=== PATIENT | female | born 1955 | race Caucasian/White ===

== ENCOUNTER 2020-01-10 09:10 | Outpatient (CLI) | payer BC, SELFPAY ==
--- NOTE | ~2020-01-10 | MM_ITS ---
EXAMINATION: MM screening tyrel BI w mary HISTORY: Screening mammogram TECHNIQUE: Craniocaudal and mediolateral oblique 3-D tomosynthesis images were obtained and synthetic 2-D images were generated. CAD analysis was submitted and interpreted. COMPARISON: 01/05/2019 bilateral digital screening mammogram 06/02/2018, 05/19/2018 diagnostic right digital mammogram 12/15/2017 outside bilateral breast ultrasound images: multiple bilateral simple cysts were reported 12/08/2017 outside mammogram images BREAST PARENCHYMAL COMPOSITION: The breasts are heterogeneously dense, which may obscure small masses . FINDINGS: There are 3 biopsy markers on the right. History of prior benign right breast biopsy. Bilateral circumscribed opacities, the largest approximately 1.7 cm on the right. There is diminished size of left breast circumscribed opacities since 01/05/2019. The findings are consistent with bilater al fibrocystic changes. No suspicious mass, architectural distortion or malignant calcification of ei ther breast is evident. There is no evidence of suspicious mass, calcification, or architectural dist ortion to suggest malignancy in either breast. There has been no suspicious interval change. IMPRESSION: 1. No mammographic evidence of malignancy. 2. Recommend routine screening mammography in one year. BI-RADS Category 2: Benign finding(s). Reviewed, dictated and finalized at location A. DRIVER
== END 2020-01-10 09:11 | disposition home or self-care (01) ==
LOC: ANHIMG 09:15
PROVIDERS: PCP Internal Medicine; Visit Provider Student in an Organized Health Care Education/Training Program
DX: Z12.31 Encounter for screening mammogram for malignant neoplasm of breast (principal)
CPT/HCPCS: 77063; 77067

== ENCOUNTER 2021-02-06 15:34 | Outpatient (CLI) | payer MEDICARE, BC, SELFPAY | END 2021-02-06 15:35 | disposition home or self-care (01) | LOC: ANHCOVIDVC 15:34 | PROVIDERS: PCP Internal Medicine | DX: Z23 Encounter for immunization (principal) | CPT/HCPCS: 0001A; 91300 ==

== ENCOUNTER 2021-02-07 09:01 | Outpatient (CLI) | payer MEDICARE, BC, SELFPAY ==
--- NOTE | ~2021-02-07 | MM_ITS ---
EXAMINATION: MM screening tyrel BI w mary HISTORY: Screening mammogram TECHNIQUE: Craniocaudal and mediolateral oblique 3-D tomosynthesis images were obtained and synthetic 2-D images were generated. CAD analysis was submitted and interpreted. COMPARISON: January 10, 2020, October 05, 2019 bilateral digital screening mammogram examinations BREAST PARENCHYMAL COMPOSITION: The breasts are heterogeneously dense, which may obscure small masses . FINDINGS: Again noted are 3 right biopsy markers, with history of benign diagnosis There are scattered bilateral low-density circumscribed subcentimeter masses, likely bilateral breast cysts. There is asymmetric density in the posterior lower inner medial left breast; diagnostic left mammogra m and left breast ultrasound examination are recommended. Otherwise there is no evidence of suspicious mass, calcification, or architectural distortion to sugg est malignancy in either breast. There has been no other suspicious interval change. IMPRESSION: 1. Asymmetry, left breast 2. Diagnostic left mammogram and left breast ultrasound examination are recommended. BI-RADS Category 0: Incomplete: Needs additional imaging evaluation. Reviewed, dictated and finalized at location A. ERCIAL CREDIT HEAD IMPRESSION: 1. Asymmetry, left breast 2. Diagnostic left mammogram and left breast ultrasound examination are recomme nded. BI-RADS Category 0: Incomplete: Needs additional imaging evaluation.
== END 2021-02-07 09:02 | disposition home or self-care (01) ==
LOC: ANHIMG 09:06
PROVIDERS: PCP Internal Medicine; Visit Provider Student in an Organized Health Care Education/Training Program
DX: Z12.31 Encounter for screening mammogram for malignant neoplasm of breast (principal); R92.8 Other abnormal and inconclusive findings on diagnostic imaging of breast
CPT/HCPCS: 77063; 77067

== ENCOUNTER 2021-02-27 15:06 | Outpatient (CLI) | payer BC, SELFPAY | END 2021-02-27 15:07 | disposition home or self-care (01) | LOC: ANHCOVIDVC 15:06 | PROVIDERS: PCP Internal Medicine | DX: Z23 Encounter for immunization (principal) | CPT/HCPCS: 0002A; 91300 ==

== ENCOUNTER 2021-04-26 11:38 | Outpatient (CLI) | payer MEDICARE, BC, SELFPAY ==
--- NOTE | ~2021-04-26 | MMUS_ITS ---
EXAMINATION: MM diagnostic mammo unilat LT, US breast LT limited HISTORY: Left breast asymmetry on screening mammogram TECHNIQUE: Additional 3-D tomosynthesis images of the left breast were performed and synthetic 2-D im ages were generated. CAD analysis was submitted and interpreted. High resolution limited left breast ultrasound was performed. COMPARISON: 02/07/2021, 01/10/2020, 01/05/2019, 12/08/2017 BREAST PARENCHYMAL COMPOSITION: The breasts are heterogeneously dense, which may obscure small masses . FINDINGS: MAMMOGRAPHIC FINDINGS: There are multiple obscured masses of the left breast. With spot compression, many demonstrate waxing and waning appearance when compared to prior mammograms. No definite suspicious mass is identified. There is no architectural distortion or suspicious calcification. ULTRASOUND: There are multiple cysts of the lower inner breast, the largest of which measures 6 mm x 4 mm. No carol picious cystic or solid mass is identified. IMPRESSION: 1. No mammographic or sonographic evidence of malignancy. 2. Recommend routine screening mammography in one year. BI-RADS Category 2: Benign finding(s). Reviewed, dictated and finalized at location A. IMPRESSION: 1. No mammographic or sonographic evidence of malignancy. 2. Recommend routine screening mammography in one year. BI-RADS Category 2: Benign finding(s).
== END 2021-04-26 11:39 | disposition home or self-care (01) ==
PROVIDERS: PCP Internal Medicine; Visit Provider Student in an Organized Health Care Education/Training Program
DX: R92.8 Other abnormal and inconclusive findings on diagnostic imaging of breast (principal)
CPT/HCPCS: 76642; 77065

== ENCOUNTER 2021-10-29 08:06 | Outpatient (CLI) | payer MEDICARE, SELFPAY ==
--- NOTE | 2021-10-29 | ECG_ITS ---
Measurements Intervals [place] Rate: 70 P: 42 CA: 166 QRS: 9 QRSD: 82 T: 60 QT: 391 QTc: 425 Interpretive Statements SINUS RHYTHM MINIMAL Q WAVES- INFERIOR LEADS BORDERLINE ECG Electronically Signed On 10-29-2021 8:46:44 PRODUCTION SUPERVISOR OFF SHIFT by Gerald Galeano D.O.
[2021-10-29 08:48] LABS: Anion Gap 8 mmol/L (8-16); Blood Urea Nitrogen 31 mg/dL (7-17); Calcium 8.8 mg/dL (8.4-10.2); Carbon Dioxide 30 mmol/L (22-30); Chloride 99 mmol/L (98-107); Estimated Glomerular Filt Rate > 60; Glucose 103 mg/dL (65-110); Potassium 3.6 mmol/L (3.4-5.0); Sodium 137 mmol/L (137-145)
== END 2021-10-29 08:07 | disposition home or self-care (01) ==
PROVIDERS: PCP Internal Medicine; Visit Provider Orthopaedic Surgery
DX: Z01.818 Encounter for other preprocedural examination (principal); R94.31 Abnormal electrocardiogram [ECG] [EKG]
CPT/HCPCS: 36415; 80048; 93005

== ENCOUNTER 2022-03-15 01:02 | Day surgery (SDC) | payer MEDICARE, SELFPAY ==
[2022-03-06 08:55] VITALS: BMI 27.3
[2022-03-15 06:20] VITALS: BMI 26.9
[2022-03-15 06:27] VITALS: BP 113/74; PULSE 91; RESP 18; TEMP 36.1; O2SAT 98
[2022-03-15] MEDS: LACTATED RINGERS 1,000 ML 150 ML IV CONT (06:29)
--- NOTE | 2022-03-15 06:59 | WPDANESEPPF ---
Anes - Initial Pre Proc Eval Procedure: Operation Date: 03/15/22 07:30 Proposed Procedures p Screening Colonoscopy - Arnulfo Galeana MD Date/Time: 03/15/22 06:59 Surgeon: Arnulfo Galeana MD Pre Op Diagnosis: neoplasm screening Patient Data Age: 66 Gender: F Height: 1.52 m Weight: 62.6 kg Last Vital Signs Temp 36.1 C L 03/15/22 06:27 Pulse 91 03/15/22 06:27 Resp 18 03/15/22 06:27 BP 113/74 03/15/22 06:27 Pulse Ox 98 03/15/22 06:27 Allergies Allergy/AdvReac Type Severity Reaction Status Date / Time acetaminophen AdvReac Mild VOMITING Verified 03/06/22 09:15 hydrocodone AdvReac Mild NAUSEA Verified 03/06/22 09:15 propoxyphene AdvReac Mild VOMITING Verified 03/06/22 09:15 PROCAINE HCL (Generic Allergy Severe Loss of Uncoded 03/06/22 09:15 Allergy) Consciousness NKFA Allergy Unknown Unknown Uncoded 03/06/22 09:15 1 DARVON 2 NOVICAINE AdvReac Mild Nausea Uncoded 03/06/22 09:15 Home Medications Medication Instructions Recorded Confirmed Type valacyclovir 1 gram tablet 1,000 mg PO DAILY #90 tablet 02/14/20 03/06/22 Rx alprazolam 0.5 mg tablet 0.5 mg PO DAILY 03/22/20 03/06/22 History atorvastatin 10 mg tablet 10 mg PO DAILY 03/22/20 03/06/22 History tramadol 50 mg tablet 50 mg PO Q6H PRN 03/22/20 03/06/22 History pregabalin 150 mg capsule 150 mg PO TID 09/20/20 03/06/22 History estradiol 1 mg tablet 1 mg PO DAILY #90 tablet 09/28/21 03/06/22 Rx lisinopril 20 1 tablet PO DAILY 09/28/21 03/06/22 History mg-hydrochlorothiazide 25 mg tablet Patient hx anesthesia problems: none Family hx anesthesia problems: none Results Review: All pre-operative results and documents have been reviewed as part of the pre-operative evaluation. [facility] Past Medical History Medical History Anxiety Autoimmune disease High cholesterol History of vaginal delivery Hyperlipidemia Hypertension Irritable bowel Surgical History Surgical History History of breast biopsy History of total hysterectomy Hx of hemorrhoidectomy 09/07/2021 Excision Thrombosed External Hemorrhoid Family History Family History Mother Patient's mother is Hypertension Father Patient's father is Grandparent Family history of malignant neoplasm Daughter No problems noted. Social History Social History Smoking status: Never smoker Second hand tobacco smoke exposure: No Alcohol intake: never Substance use: current Substance use type: marijuana Other substance usage details: occasional use for pain Living arrangements: with family Additional living arrangements comments: Lives with Additional occupation/education comments: Disabled Gender identity (if verbalized by the patient): Female Spiritual care concerns: No Agree to blood products: Yes Anes - Eval Final PreProcedure Day of Procedure 03/15/22 06:59 Patient weight: overweight Heart: regular rate and rhythm Lungs: clear to auscultation Airway: Mallampati scale class II and special considerations poor opening Neurological: alert and oriented Last oral intake: >/= 8 hours ASA classification: III Emergent: no Anesthetic plan: proceed Anesthesia type and monitoring: general GIVS and standard monitoring Results Review: All pre-operative results and documents have been reviewed as part of the pre-operative evaluation. Informed Consent: The patient's anesthetic plan and its attendant risks and benefits were discussed with the patient/family/POA. Questions were solicited and answers provided to the satisfaction of the patient/family/POA.
--- NOTE | 2022-03-15 07:03 | PM.HPGS ---
History of Present Illness History of Present Illness Consent: Risks, benefits, and alternatives have been discussed and questions answered. Patient agrees to proceed with procedure. Chief complaint: neoplasm screening Narrative: Rosalind Brown is a 66 year old female Referred for colon cancer screening. Her last colonoscopy was 10 years ago Review of Systems Review of Systems: All systems reviewed & are unremarkable except as noted in HPI and below PMFSH Past Medical History Medical History Anxiety Autoimmune disease High cholesterol History of vaginal delivery Hyperlipidemia Hypertension Irritable bowel Surgical History Surgical History History of breast biopsy History of total hysterectomy Hx of hemorrhoidectomy 09/07/2021 Excision Thrombosed External Hemorrhoid Family History Family History Mother Patient's mother is Hypertension Father Patient's father is Grandparent Family history of malignant neoplasm Daughter No problems noted. Social History Social History Smoking status: Never smoker Second hand tobacco smoke exposure: No Alcohol intake: never Substance use: current Substance use type: marijuana Other substance usage details: occasional use for pain Living arrangements: with family Additional living arrangements comments: Lives with Additional occupation/education comments: Disabled Gender identity (if verbalized by the patient): Female Spiritual care concerns: No Agree to blood products: Yes Meds Home Medications and Allergies Home Medications Medication Instructions Recorded Confirmed Type valacyclovir 1 gram tablet 1,000 mg PO DAILY #90 tablet 02/14/20 03/06/22 Rx alprazolam 0.5 mg tablet 0.5 mg PO DAILY 03/22/20 03/06/22 History atorvastatin 10 mg tablet 10 mg PO DAILY 03/22/20 03/06/22 History tramadol 50 mg tablet 50 mg PO Q6H PRN 03/22/20 03/06/22 History pregabalin 150 mg capsule 150 mg PO TID 09/20/20 03/06/22 History estradiol 1 mg tablet 1 mg PO DAILY #90 tablet 09/28/21 03/06/22 Rx lisinopril 20 1 tablet PO DAILY 09/28/21 03/06/22 History mg-hydrochlorothiazide 25 mg tablet Allergies Allergy/AdvReac Type Severity Reaction Status Date / Time acetaminophen AdvReac Mild VOMITING Verified 03/06/22 09:15 hydrocodone AdvReac Mild NAUSEA Verified 03/06/22 09:15 propoxyphene AdvReac Mild VOMITING Verified 03/06/22 09:15 PROCAINE HCL (Generic Allergy Severe Loss of Uncoded 03/06/22 09:15 Allergy) Consciousness NKFA Allergy Unknown Unknown Uncoded 03/06/22 09:15 1 DARVON 2 NOVICAINE AdvReac Mild Nausea Uncoded 03/06/22 09:15 Vital Signs Vital Signs - 24 hr 03/15/22 06:27 Temperature 36.1 C L Pulse Rate 91 Respiratory Rate 18 Blood Pressure 113/74 Pulse Oximetry 98 Exam Resp: Auscultation: clear to auscultation bilaterally Cardio: Rate: regular rate Rhythm: regular rhythm GI: GI Palp: Yes Soft to palpation and No Tenderness to palpation present (GI) Assessment and Plan Assessment and plan (1) Colon cancer screening: Code(s): Z12.11 - Encounter for screening for malignant neoplasm of colon Status: Acute Assessment and Plan: Colonoscopy with possible biopsy or polypectomy or cautery or injection of substances.
[2022-03-15 07:40] VITALS: BP 87/59; PULSE 74; RESP 19; O2SAT 99
[2022-03-15 07:50] VITALS: BP 119/71; PULSE 70; RESP 17; O2SAT 100
[2022-03-15 08:00] VITALS: BP 116/70; PULSE 70; RESP 19; O2SAT 100
== END 2022-03-15 08:09 | disposition home or self-care (01) ==
PROVIDERS: PCP Internal Medicine; Visit Provider Internal Medicine Gastroenterology
PROC: 0DJD8ZZ Inspection of Lower Intestinal Tract, Via Natural or Artificial Opening Endoscopic (ICD-10-PCS; CPT 45378; principal; 2022-03-15 07:30)
DX: Z12.11 Encounter for screening for malignant neoplasm of colon (principal); K64.8 Other hemorrhoids; K57.30 Diverticulosis of large intestine without perforation or abscess without bleeding; D12.8 Benign neoplasm of rectum; K63.5 Polyp of colon; I10 Essential (primary) hypertension; E78.5 Hyperlipidemia, unspecified; F41.9 Anxiety disorder, unspecified; M35.9 Systemic involvement of connective tissue, unspecified; K58.9 Irritable bowel syndrome, unspecified; F12.90 Cannabis use, unspecified, uncomplicated
CPT/HCPCS: 45380; 45385; 88305; J2001; J2704; J7120

== ENCOUNTER 2022-07-12 08:30 | Outpatient (CLI) | payer MEDICARE, SELFPAY ==
--- NOTE | ~2022-07-12 | MM_ITS ---
EXAMINATION: MM screening tyrel BI w mary HISTORY: Screening mammogram TECHNIQUE: Craniocaudal and mediolateral oblique 3-D tomosynthesis images were obtained and synthetic 2-D images were generated. CAD analysis was submitted and interpreted. COMPARISON: 04/26/2021, 02/07/2021, 01/10/2020 BREAST PARENCHYMAL COMPOSITION: There are scattered areas of fibroglandular density. FINDINGS: Again seen are multiple bilateral obscured breast masses, none of which demonstrate suspici ous interval change. There is no suspicious mass, calcification, or architectural distortion to sugge st malignancy in either breast. IMPRESSION: 1. No mammographic evidence of malignancy. 2. Recommend routine screening mammography in one year. BI-RADS Category 2: Benign finding(s). Reviewed, dictated and finalized at location A.
== END 2022-07-12 08:31 | disposition home or self-care (01) ==
PROVIDERS: PCP Internal Medicine; Visit Provider Student in an Organized Health Care Education/Training Program
DX: Z12.31 Encounter for screening mammogram for malignant neoplasm of breast (principal)
CPT/HCPCS: 77063; 77067

== ENCOUNTER → 2022-08-19 10:00 | Outpatient (CLI) | payer MEDICARE, SELFPAY ==
--- NOTE | ~2022-08-19 | CT_ITS ---
EXAMINATION: CT sinus wo con DATE: 08/19/2022 10:21 INDICATION: Chronic sinusitis TECHNIQUE: Computed tomography (CT) of the paranasal sinuses was performed without contrast. Iterativ e reconstruction technique was employed. Exam dose: 251.70 mGy-cm total exam DLP. COMPARISON: None FINDINGS: There is leftward deviation of the nasal septum. Unable subtle turbinates are unremarkable. There is mild mucosal periosteal thickening in the region of the maxillary ostia bilaterally. There i s mild soft tissue thickening of the right infundibulum. There is slight mucoperiosteal thickening of the medial wall of the right frontal sinus and anterior wall of left sphenoid sinus. There is mild patchy soft tissue thickening of the ethmoid air cells. Mild mucoperiosteal thickening primarily in the lower aspect of the maxillary sinuses. The mastoid air cells are normally developed and aerated bilaterally. IMPRESSION: Mild soft tissue thickening at the maxillary ostia and right infundibulum Mild patchy soft tissue thickening the ethmoid air cells, mild soft tissue thickening along the media l wall of the right frontal sinus, minimal soft tissue thickening of anterior left sphenoid sinus wal l Mild mucoperiosteal thickening of the lower aspect of both maxillary sinuses Reviewed, dictated and finalized at Location A. Reviewed, dictated and finalized at location B. IMPRESSION: Mild soft tissue thickening at the maxillary ostia and right infun dibulum Mild patchy soft tissue thickening the ethmoid air cells, mild soft tissue thic kening along the medial wall of the right frontal sinus, minimal soft tissue th ickening of anterior left sphenoid sinus wall Mild mucoperiosteal thickening of the lower aspect of both maxillary sinuses
== END ==
PROVIDERS: PCP Internal Medicine; Visit Provider Otolaryngology
DX: J32.9 Chronic sinusitis, unspecified (principal)
CPT/HCPCS: 70486

== ENCOUNTER 2022-10-23 08:43 | Emergency (ER) | payer MEDICARE, SELFPAY ==
--- NOTE | ~2022-10-23 | CT_ITS ---
EXAMINATION: CT abdomen pelvis w con DATE: 10/23/2022 10:03 INDICATION: Epigastric pain and nausea TECHNIQUE: Computed tomography (CT) of the abdomen and pelvis was performed with 100 cc Omnipaque 350 intravenous contrast. The dose-length product was 337.94 mGy-cm. Automated exposure control and iter ative reconstruction technique were employed. COMPARISON: CT dated 11/16/2016. FINDINGS: Heart size is normal. There is atherosclerosis of the aorta without aneurysm. No significan t pleural or pericardial effusion. There is lower lobe atelectasis. Fatty infiltration of the liver. Gallbladder is present. The spleen, pancreas, adrenal glands are unr emarkable. There are small subcentimeter hypodensities of the kidneys, most likely benign. There is a n exophytic 1.7 cm cyst from the upper pole of the right kidney. Nonobstructive bowel gas pattern. No rmal appendix. Uterus is surgically absent. No abnormal pelvic masses or fluid collections. The bladd er is decompressed. Small fat-containing umbilical hernia. Mild lumbar spondylosis. IMPRESSION: 1. No acute abdominal abnormality. 2: Hepatic steatosis. Reviewed, dictated and finalized at location A. TER TECHNICIAN
[2022-10-23 08:54] VITALS: BP 153/98; PULSE 89; RESP 16; TEMP 36.7; O2SAT 98
[2022-10-23 09:07] LABS: Basophils Absolute Auto 0.1 K/mm3 (0.0-0.1); Basophils Percent Auto 0.6 % (0.2-1.2); Eosinophils Absolute Auto 0.1 K/mm3 (0-0.3); Eosinophils Percent Auto 0.5 % (0-4.4); Hematocrit 44.4 % (37.0-47.0); Hemoglobin 15.2 g/dL (12.0-15.0); Immature Granulocyte Absolute 0.04 K/mm3 (0.00-0.031); Immature Granulocyte Percent A 0.3 % (0-0.5); Lymphocytes Absolute Auto 2.11 K/mm3 (0.9-3.2); Lymphocytes Percent Auto 17.4 % (18.3-44.2); Mean Corpuscular HGB Conc 34.2 g/dl (32-36); Mean Corpuscular Hemoglobin 32.9 pg (26-34); Mean Corpuscular Volume 96.1 fl (80-100); Mean Platelet Volume 9.4 fl (7.4-10.4); Monocytes Absolute Auto 0.5 K/mm3 (0.1-0.6); Monocytes Percent Auto 4.3 % (2.6-8.5); Neutrophils Absolute Auto 9.3 K/mm3 (1.3-6.7); Neutrophils Percent Auto 76.9 % (45.5-73.1); Platelet Count Result 541 k/mm3 (150-375); Red Blood Count 4.62 M/mm3 (4.2-5.4); Red Cell Distribution Width 14.3 % (11.5-14.5); White Blood Count 12.1 K/mm3 (4.5-10.0)
--- NOTE | 2022-10-23 09:23 | ED.NAVMDI ---
HPI - Nausea/Vomiting/Diarrhea General Chief complaint: Nausea/Vomiting/Diarrhea Stated complaint: sick x 1 week Time Seen by Provider: 10/23/22 09:09 Source: patient Mode of arrival: ambulatory Limitations: no limitations History of Present Illness HPI Narrative: This is a 67 year old female that presents to the ER for nausea, ongoing for one week. Associated with a headache and congestion. She has Zofran prescribed for her anxiety and has taken that with little relief. Denies fever, cough, vomiting, diarrhea, dysuria. Related Data Home Medications Medication Instructions Recorded Confirmed alprazolam 0.5 mg tablet (Xanax) 0.5 mg PO DAILY 03/22/20 03/06/22 atorvastatin 10 mg tablet 10 mg PO DAILY 03/22/20 03/06/22 tramadol 50 mg tablet 50 mg PO Q6H PRN Pain 03/22/20 03/06/22 lisinopril 20 1 tablet PO DAILY 09/28/21 03/06/22 mg-hydrochlorothiazide 25 mg tablet meloxicam 7.5 mg tablet 7.5 mg PO DAILY 10/09/22 mirtazapine 30 mg tablet 30 mg PO DAILY 10/09/22 meloxicam 7.5 mg tablet 7.5 mg PO DAILY 10/23/22 Allergies Allergy/AdvReac Type Severity Reaction Status Date / Time hydrocodone AdvReac Mild NAUSEA Verified 10/23/22 08:57 procaine AdvReac Mild Vomiting Verified 10/23/22 09:24 propoxyphene AdvReac Mild VOMITING Verified 10/23/22 08:57 NKFA Allergy Unknown Unknown Uncoded 10/23/22 08:57 Review of Systems Review of Systems: CONSTITUTIONAL: Denies fever ENT: Reports congestion CARDIOVASCULAR: Denies chest pain RESPIRATORY: Denies cough or dyspnea. GASTROINTESTINAL: Reports abdominal pain, nausea. Denies vomiting, or diarrhea. GENITOURINARY: Denies dysuria NEUROLOGIC: Reports headache. Denies numbness, or weakness. PSYCHIATRIC: Reports anxiety All systems reviewed & are unremarkable except as noted in HPI and below PMFSH Past Medical History Medical History (Updated 10/23/22 @ 11:14 by Kindra Basilio PA-C) Anxiety Autoimmune disease High cholesterol History of kidney stones History of vaginal delivery Hyperlipidemia Hypertension Irritable bowel Surgical History Surgical History (Updated 10/09/22 @ 08:30 by Tonja Luong MA) H/O lateral meniscus repair of right knee History of breast biopsy History of total hysterectomy Hx of hemorrhoidectomy 09/07/2021 Excision Thrombosed External Hemorrhoid Family History Family History Mother Patient's mother is Hypertension Father Patient's father is Grandparent Family history of malignant neoplasm Daughter No problems noted. Social History Social History Smoking status: Never smoker Second hand tobacco smoke exposure: No Alcohol intake: never Substance use: current Substance use type: marijuana Other substance usage details: occasional use for pain Additional living arrangements comments: Lives with Additional occupation/education comments: Disabled Gender identity (if verbalized by the patient): Female Spiritual care concerns: No Agree to blood products: Yes Exam Narrative: GENERAL: Well-appearing, well-nourished, and in no acute distress. HEAD: Normocephalic, atraumatic. EYES: EOMI. ENT: Nares clear, no rhinorrhea or epistaxis. Mucous membranes moist. Oropharynx without tonsillar hypertrophy exudate or other lesions. NECK: Supple. No adenopathy or masses. CHEST: Clear to auscultation. No respiratory distress. No wheezes rales or rhonchi HEART: Regular rate and rhythm. No murmur heard. Normal peripheral pulses. ABDOMEN: Soft, nondistended, normal active bowel sounds. Mild tenderness to palpation throughout the epigastrium, without guarding EXTREMITIES: Normal range of motion. No edema. SKIN: Warm, dry, no rash. NEURO: No focal deficits. Alert and oriented x3. PSYCH: Normal mood and affect Course Vital Signs Vital signs: Vital Signs Te
[2022-10-23 09:42] LABS: Alanine Aminotransferase 10 U/L (6-35); Albumin Level 4.3 g/dL (3.5-5.1); Alkaline Phosphatase 86 U/L (38-126); Anion Gap 8 mmol/L (8-16); Aspartate Amino Transferase 27 U/L (14-36); Bilirubin,Total 0.5 mg/dL (0.2-1.3); Blood Urea Nitrogen 30 mg/dL (7-17); Calcium 9.2 mg/dL (8.4-10.2); Carbon Dioxide 23 mmol/L (22-30); Chloride 105 mmol/L (98-107); Estimated CRCL calculation 43 ml/min; Estimated Glomerular Filt Rate > 60; Glucose 107 mg/dL (65-110); Lipase 97 U/L (23-300); Potassium 3.7 mmol/L (3.4-5.0); Sodium 136 mmol/L (137-145)
[2022-10-23] MEDS: diphenhydrAMINE HCl INJ 50 MG/ML VIAL 25 MG IV PUSH (09:48)
[2022-10-23] MEDS: SODIUM CHLORIDE 0.9% IV 1,000 ML 999 ML IV CONT (09:48)
[2022-10-23] MEDS: METOCLOPRAMIDE HCL INJ 10 MG/2 ML VIAL IV PUSH (09:49)
[2022-10-23] MEDS: PANTOPRAZOLE SODIUM IV 40 MG VIAL IV PUSH (09:49)
[2022-10-23 09:54] LABS: Appearance Urine Clear (Clear); Bilirubin Urine Negative (Negative); Blood Urine Negative (Negative); Color Urine Yellow (Yellow); Glucose Urine UA Negative (Negative); Ketones Urine 1+ mg/dL (Negative); Leukocyte Esterase Ur Negative LEU/UL (Negative); Nitrate Urine Negative (Negative); Protein Urine 1+ mg/dL (Negative); Specific Grav Ur 1.015 (1.001-1.035); Urobilinogen Urine 0.2 mg/dL (<2.0)
[2022-10-23 10:05] LABS: Mucus Urine Rare /lpf; Squamous Epithelial Cell Urine Moderate /hpf (Few); WBC Urine 0-3 /hpf
[2022-10-23 10:06] LABS: Influenza A QL RT-PCR Negative (Negative); Influenza B QL RT-PCR Negative (Negative); RSV RNA, RT-PCR Negative (Negative); SARS-CoV-2 RNA PCR Negative
[2022-10-23 10:18] LABS: Add Urine Microscopic? YES
== END 2022-10-23 11:20 | disposition home or self-care (01) ==
PROVIDERS: Physician Assistant; Emergency Provider Emergency Medicine; PCP Internal Medicine
DX: R11.0 Nausea (principal); Z20.822 Contact with and (suspected) exposure to COVID-19; K76.0 Fatty (change of) liver, not elsewhere classified
CPT/HCPCS: 36415; 74177; 80053; 81001; 83690; 85025; 87637; 99284; C9113; J0131; J1200; J2765; J7030; Q9967

== ENCOUNTER 2022-10-24 06:10 | Observation (INO) | payer MEDICARE, SELFPAY ==
[2022-10-24] VITALS (15 sets, daily range): BP systolic 115–151; BP diastolic 52–90; PULSE 66–102; RESP 14–20; TEMP 36.3–37; O2SAT 97–100
--- NOTE | ~2022-10-24 | XR_ITS ---
XR abdomen/kub 1V DATE: 10/24/2022 11:09 INDICATION: Stomach cramping. Uncontrolled nausea. TECHNIQUE: 2 supine AP views COMPARISON: 10/23/2022 CT abdomen pelvis FINDINGS: There is no evidence of bowel obstruction. The psoas shadows are intact. No visceromegaly i s evident. Bilateral calcified pelvic phleboliths. IMPRESSION: Nonspecific abdomen; no evidence of bowel obstruction Reviewed, dictated and finalized at [facility]. Reviewed, dictated and finalized at location [facility]. ICE CAPTAIN
--- NOTE | ~2022-10-24 | XR_ITS ---
XR abdomen/kub 1V DATE: 10/26/2022 09:53 INDICATION: Impaction. Abdominal pain, nausea TECHNIQUE: AP view COMPARISON: 10/20/2022 KUB 10/23/2022 CT abdomen pelvis FINDINGS: No evidence of bowel obstruction. The psoas shadows are intact. No visceromegaly is detecte d. Bilateral calcified pelvic phleboliths. IMPRESSION: No significant abnormality Reviewed, dictated and finalized at [facility]. Reviewed, dictated and finalized at [facility]. ION CONSULTANT SALES IMPRESSION: No significant abnormality
--- NOTE | 2022-10-24 06:24 | ED.GENADULT ---
HPI - General Adult General Chief complaint: Abdominal Pain <Juan Francisco Krishna DO - Last Filed: 10/24/22 19:09> Stated complaint: chills, abd pain, n/v <Juan Francisco Krishna DO - Last Filed: 10/24/22 19:09> Time Seen by Provider: 10/24/22 06:24 <Juan Francisco Krishna DO - Last Filed: 10/24/22 19:09> Source: RN notes reviewed <Juan Francisco Krishna DO - Last Filed: 10/24/22 19:09> History of Present Illness HPI narrative: Patient presents emergency department from home for abdominal pain and nausea. Patient states symptoms been ongoing for the past 1 week. States that she has been having worsening nausea and states that she had thrown up earlier this morning she states that with that is associated with abdominal pain is diffuse throughout the abdomen. Pain is described as cramping in nature. She denies any fevers or chills chest pain shortness of breath or any other symptoms. Patient states that she was seen in the emergency department yesterday for the same symptoms and was discharged home with nausea medication which she took with minimal relief <Juan Francisco Krishna DO - Last Filed: 10/24/22 19:09> Related Data Home medications: Home Medications Medication Instructions Recorded Confirmed alprazolam 0.5 mg tablet (Xanax) 0.5 mg PO DAILY 03/22/20 10/24/22 atorvastatin 10 mg tablet 10 mg PO DAILY 03/22/20 10/24/22 tramadol 50 mg tablet 50 mg PO Q6H PRN Pain 03/22/20 10/24/22 lisinopril 20 1 tablet PO DAILY 09/28/21 10/24/22 mg-hydrochlorothiazide 25 mg tablet mirtazapine 30 mg tablet 30 mg PO HS 10/09/22 10/24/22 meloxicam 7.5 mg tablet 7.5 mg PO DAILY 10/23/22 10/24/22 <Juan Francisco Krishna DO - Last Filed: 10/24/22 19:09> Allergies/adverse reactions: Allergies Allergy/AdvReac Type Severity Reaction Status Date / Time hydrocodone AdvReac Mild NAUSEA Verified 10/24/22 09:25 procaine AdvReac Mild Vomiting Verified 10/24/22 09:25 propoxyphene AdvReac Mild VOMITING Verified 10/24/22 09:25 NKFA Allergy Unknown Unknown Uncoded 10/23/22 08:57 <Juan Francisco Krishna DO - Last Filed: 10/24/22 19:09> Review of Systems Review of Systems: Gen.: Denies fevers or chills ENT: Denies congestion Respiratory: Denies shortness of breath or cough CV: Denies chest pain or palpitations GI: See HPI Musculoskeletal: Denies back pain or muscle pain Neuro: Denies numbness, tingling, weakness or focal weakness Skin: Denies rash Except as documented, all other systems reviewed and negative <Juan Francisco Krishna DO - Last Filed: 10/24/22 19:09> [facility] Past Medical History Medical History: Medical History Anxiety Autoimmune disease High cholesterol History of kidney stones History of vaginal delivery Hyperlipidemia Hypertension Irritable bowel Rheumatoid arthritis <Juan Francisco Krishna DO - Last Filed: 10/24/22 19:09> Surgical History Surgical History: Surgical History H/O lateral meniscus repair of right knee History of breast biopsy History of total hysterectomy Hx of hemorrhoidectomy 09/07/2021 Excision Thrombosed External Hemorrhoid <Juan Francisco Krishna DO - Last Filed: 10/24/22 19:09> Family History Family History: Family History Mother Patient's mother is Hypertension Father Patient's father is Hypertension Grandparent Family history of malignant neoplasm Brain cancer Daughter No problems noted. <Juan Francisco Krishna DO - Last Filed: 10/24/22 19:09> Social History Social History: Social History Social History: Patient lives with her has 1 child. Her Jeovany will be her surrogate. She has 1 dog. She also wishes to be a full code at this time. Smoking status: Never smoker Rhina
[2022-10-24 06:38] LABS: Basophils Absolute Auto 0.1 K/mm3 (0.0-0.1); Basophils Percent Auto 0.6 % (0.2-1.2); Eosinophils Percent Auto 0.4 % (0-4.4); Hematocrit 40.4 % (37.0-47.0); Hemoglobin 14.2 g/dL (12.0-15.0); Immature Granulocyte Absolute 0.03 K/mm3 (0.00-0.031); Immature Granulocyte Percent A 0.3 % (0-0.5); Lymphocytes Absolute Auto 2.17 K/mm3 (0.9-3.2); Lymphocytes Percent Auto 20.4 % (18.3-44.2); Mean Corpuscular HGB Conc 35.1 g/dl (32-36); Mean Corpuscular Hemoglobin 32.3 pg (26-34); Monocytes Absolute Auto 0.6 K/mm3 (0.1-0.6); Monocytes Percent Auto 5.2 % (2.6-8.5); Neutrophils Absolute Auto 7.8 K/mm3 (1.3-6.7); Neutrophils Percent Auto 73.1 % (45.5-73.1); Platelet Count Result 554 k/mm3 (150-375); Red Blood Count 4.39 M/mm3 (4.2-5.4); Red Cell Distribution Width 13.9 % (11.5-14.5); White Blood Count 10.6 K/mm3 (4.5-10.0)
[2022-10-24] MEDS: FAMOTIDINE 20 MG/2 ML VIAL IV PUSH (06:38)
[2022-10-24] MEDS: SODIUM CHLORIDE 0.9% IV 1,000 ML 999 ML IV CONT ×2 (06:39→08:19)
[2022-10-24 06:47] LABS: Alanine Aminotransferase 10 U/L (6-35); Albumin Level 4.6 g/dL (3.5-5.1); Alkaline Phosphatase 92 U/L (38-126); Anion Gap 12 mmol/L (8-16); Aspartate Amino Transferase 28 U/L (14-36); Bilirubin,Total 0.5 mg/dL (0.2-1.3); Blood Urea Nitrogen 19 mg/dL (7-17); Calcium 9.4 mg/dL (8.4-10.2); Carbon Dioxide 22 mmol/L (22-30); Chloride 104 mmol/L (98-107); Estimated CRCL calculation 43 ml/min; Estimated Glomerular Filt Rate > 60; Glucose 113 mg/dL (65-110); Lipase 103 U/L (23-300); Potassium 3.3 mmol/L (3.4-5.0); Sodium 138 mmol/L (137-145)
[2022-10-24] MEDS: ONDANSETRON INJ 4 MG/2 ML VIAL IV PUSH ×3 (07:45→15:05)
[2022-10-24] MEDS: diphenhydrAMINE HCl INJ 50 MG/ML VIAL 25 MG IV PUSH (08:19)
--- NOTE | 2022-10-24 09:11 | ADMGEN ---
This patient, Rosalind Brown, was admitted to 2 Medical Room 257-01. Patient/family oriented to hospital policies and general routines including ID bracelet, bed and alarms, visiting hours, pain management, procedures, bathroom and other care routines, personal items, smoking policy, room service/diet, and visiting hours. Information on how to activate the Rapid Response Team has been discussed. Patient/Family are encouraged to report perceived risks to care and to ask questions if they do not understand what they are told or what they should do.
[2022-10-24] MEDS: SODIUM CHLORIDE 0.9% IV 1,000 ML 125 ML IV CONT ×2 (09:14→17:36)
[2022-10-24 09:22] LABS: Influenza A QL RT-PCR Negative (Negative); Influenza B QL RT-PCR Negative (Negative); SARS-CoV-2 RNA PCR Negative
[2022-10-24] MEDS: METOCLOPRAMIDE HCL INJ 10 MG/2 ML VIAL IV PUSH (11:11)
--- NOTE | 2022-10-24 11:30 | PM.IMHP ---
H&P: HPI History of Present Illness Date/Time: 10/24/22 11:30 Chief Complaint: Unresolved nausea vomiting Narrative: Patient is 67-year-old female with a past medical history of anxiety, hyperlipidemia, RA, kidney stones who presented to the ED with complaints nausea vomiting and abdominal pain for the last week. Patient stated that it has been getting worse over time and she has not been able to eat anything she states most of the pain is in her epigastric region. She also stated that she has had severe nausea vomiting with no relief. She did state that this should happens to her sometimes however is from anxiety however and only lasts about an hour or so. She stated that she did try taking some Zofran which she has at home, however no relief was given. She did state that she has tried to eat something. She stated that she has had a little Jell-O, water, toast, crackers however in very small amounts. She did is admit to having a bowel movement yesterday however is very small. She also states that she has feels hungry she cannot eat. She denies any chest pain, shortness a breath, lightheadedness, dizziness, fevers. She did state that she has been very cold with shivers and chills and then gets very hot with sweats. She also stated that when she does vomit is mostly phlegm and she was was have a sinus procedure done yesterday with Dr. Anderson however because she has been so sick she has been able to go. She also stated that she does take her medications religiously. She did state that she has not been taking her Remeron due to not being able to eat with it, so she has stopped it roughly a week ago. Symptoms could be from this. KUB has been ordered. CT from 10/23/22 does not appear to have any acute findings. She does still have a gallbladder. She also admits to marijuana use. She stated that she uses mostly for pain so that she does not have to use the tramadol as much. Gave one time dose of Reglan 10mg. Patient is being admitted to the hospitalist service under observation [facility] Past Medical History Medical History Anxiety Autoimmune disease High cholesterol History of kidney stones History of vaginal delivery Hyperlipidemia Hypertension Irritable bowel Rheumatoid arthritis Surgical History Surgical History H/O lateral meniscus repair of right knee History of breast biopsy History of total hysterectomy Hx of hemorrhoidectomy 09/07/2021 Excision Thrombosed External Hemorrhoid Family History Family History Mother Patient's mother is Hypertension Father Patient's father is Hypertension Grandparent Family history of malignant neoplasm Brain cancer Daughter No problems noted. Social History Social History Social History: Patient lives with her has 1 child. Her Jeovany will be her surrogate. She has 1 dog. She also wishes to be a full code at this time. Smoking status: Never smoker Second hand tobacco smoke exposure: No Alcohol intake: never Substance use: current Substance use type: marijuana Other substance usage details: occasional use for pain Lack of Transportation: No Lack of Food: Never True Current Housing: I Have Housing Concerned About Future Housing: No Difficulty Paying Gas/Electric Bills: No Difficulty Paying for Meds: No Currently Unemployed: No Education: Don't Know Difficulty w/ Childcare or Family Care: No Living arrangements: with family Additional living arrangements comments: Lives with Occupation/Education: unemployed Additional occupation/education comments: Disabled Gender identity (if verbalized by the patient): Female Sexual Orientation (if Verbalized by
[2022-10-24] MEDS: BISACODYL 10 MG SUPPOSITORY RECTAL (15:44)
--- NOTE | 2022-10-24 17:45 | PC.NURSE ---
Soap suds enema was ordered TID, I believe it was meant to be a ONCE order however, left it in the worklist in case staff needs to re-administer in the future.
[2022-10-24] MEDS: MIRTAZAPINE 30 MG TABLET PO (20:02)
[2022-10-25] MEDS: SODIUM CHLORIDE 0.9% IV 1,000 ML 125 ML IV CONT (01:15)
[2022-10-25] MEDS: ONDANSETRON INJ 4 MG/2 ML VIAL IV PUSH ×2 (05:10→09:37)
[2022-10-25 05:11] LABS: Basophils Absolute Auto 0.1 K/mm3 (0.0-0.1); Basophils Percent Auto 0.7 % (0.2-1.2); Eosinophils Absolute Auto 0.1 K/mm3 (0-0.3); Eosinophils Percent Auto 1.6 % (0-4.4); Hematocrit 37.2 % (37.0-47.0); Hemoglobin 12.6 g/dL (12.0-15.0); Immature Granulocyte Absolute 0.03 K/mm3 (0.00-0.031); Immature Granulocyte Percent A 0.3 % (0-0.5); Lymphocytes Absolute Auto 2.56 K/mm3 (0.9-3.2); Lymphocytes Percent Auto 29.8 % (18.3-44.2); Mean Corpuscular HGB Conc 33.9 g/dl (32-36); Mean Corpuscular Hemoglobin 32.7 pg (26-34); Mean Corpuscular Volume 96.6 fl (80-100); Monocytes Absolute Auto 0.7 K/mm3 (0.1-0.6); Monocytes Percent Auto 8.4 % (2.6-8.5); Neutrophils Absolute Auto 5.1 K/mm3 (1.3-6.7); Neutrophils Percent Auto 59.2 % (45.5-73.1); Platelet Count Result 468 k/mm3 (150-375); Red Blood Count 3.85 M/mm3 (4.2-5.4); Red Cell Distribution Width 14.3 % (11.5-14.5); White Blood Count 8.6 K/mm3 (4.5-10.0)
[2022-10-25 05:13] LABS: Anion Gap 9 mmol/L (8-16); Blood Urea Nitrogen 8 mg/dL (7-17); Calcium 7.2 mg/dL (8.4-10.2); Carbon Dioxide 23 mmol/L (22-30); Chloride 107 mmol/L (98-107); Estimated CRCL calculation 49 ml/min; Estimated Glomerular Filt Rate > 60; Glucose 88 mg/dL (65-110); Potassium 2.9 mmol/L (3.4-5.0); Sodium 139 mmol/L (137-145)
[2022-10-25 06:00] VITALS: BP 151/73; PULSE 77; RESP 20; TEMP 36.7; O2SAT 98
[2022-10-25 07:22] VITALS: BMI 22.8
[2022-10-25] MEDS: SODIUM CHLORIDE 0.9% IV 1,000 ML 75 ML IV CONT ×2 (08:05→23:32)
[2022-10-25] MEDS: BISACODYL 10 MG SUPPOSITORY RECTAL (08:09)
[2022-10-25] MEDS: polyethylene glycoL 3350 17 GM POWD.PACK PO ×2 (08:09→16:34)
[2022-10-25] MEDS: DOCUSATE SODIUM 100 MG CAPSULE PO (08:09)
[2022-10-25] MEDS: ALPRAZolam (*CRX) 0.5 MG TABLET PO ×3 (08:09→21:32)
[2022-10-25] MEDS: ENOXAPARIN 40 MG/0.4 ML SYRINGE SUB-Q (08:10)
[2022-10-25] MEDS: lisinopriL 20 MG TABLET PO (08:11)
[2022-10-25] MEDS: hydroCHLOROthiazide 25 MG TABLET PO (08:11)
[2022-10-25] MEDS: estradioL 1 MG TABLET PO (08:11)
[2022-10-25] MEDS: MELOXICAM 7.5 MG TABLET PO (08:12)
[2022-10-25] MEDS: valACYclovir HCL 500 MG TABLET 1000 MG PO (08:12)
[2022-10-25] MEDS: ATORVASTATIN 10 MG TABLET PO (08:12)
[2022-10-25 08:13] LABS: Albumin Level 3.3 g/dL (3.5-5.1); Magnesium 1.5 mg/dL (1.6-2.3)
[2022-10-25] MEDS: POTASSIUM CHLORIDE 20 MEQ PACKET (FOR LIQUID) 40 MEQ PO ×2 (08:15→12:36)
[2022-10-25 08:37] VITALS: RESP 20; O2SAT 98
--- NOTE | 2022-10-25 11:38 | P.PNIM_ITS ---
Progress Note: A&P Assessment and Plan (1) Nausea & vomiting: Code(s): R11.2 - Nausea with vomiting, unspecified Status: Acute Assessment and Plan: * patient presented with nausea and vomiting with inability to tolerate diet * tolerated some clears today. Would like to advance to full liquid diet * continue IV fluids until fully tolerating diet * continue antiemetics as needed (2) Constipation: Code(s): K59.00 - Constipation, unspecified Status: Acute Assessment and Plan: * patient reports no formed bowel movement for 1 week * CT of the abdomen/ pelvis completed with no abnormality, no impaction or obstruction evident * KUB completed yesterday without obvious obstruction or infection * patient is having loose stools but still no solid stool * no improvement with soapsuds enema t.i.d., will discontinue at this time * increase MiraLax to b.i.d., continue stool softener and Dulcolax suppository * encourage increased ambulation * consider repeat KUB tomorrow if no bowel movement (3) Electrolyte abnormality: Code(s): E87.8 - Other disorders of electrolyte and fluid balance, not elsewhere classified Status: Acute Assessment and Plan: * hypokalemia: Potassium 2.9 today. Supplement with p.o. KCl and monitor labs * hypomagnesemia: Magnesium 1.5. Supplement with IV magnesium sulfate (4) Rheumatoid arthritis: Code(s): M06.9 - Rheumatoid arthritis, unspecified Status: Chronic Assessment and Plan: * chronic, no acute issues (5) Hyperlipidemia: Code(s): E78.5 - Hyperlipidemia, unspecified Status: Chronic Assessment and Plan: * continue home atorvastatin * liver enzymes are stable (6) Hypertension: Code(s): I10 - Essential (primary) hypertension Status: Chronic Assessment and Plan: * blood pressures have been stable * continue antihypertensives * monitor BP trends (7) Anxiety: Code(s): F41.9 - Anxiety disorder, unspecified Status: Acute Assessment and Plan: * no issues * continue xanax 0.5 mg daily Subjective Date/time seen: 10/25/22 11:38 Interval history: date of service: 10/25/2022 Rosalind Brown is a 67-year-old female with a history of hypertension, hyperlipidemia, rheumatoid arthritis, IBS, and anxiety is seen in follow-up abdominal pain. Patient continues to endorse nausea today. She was not able to tolerate much of her liquid diet. she did have some Jell-O and most of her Chews. She denies any episodes of emesis. She has had 3-4 small volume loose stools but I yellowish in color today. She has not had any solid stool. She describes abdominal cramping which she believes is secondary to receiving an e nema. States her symptoms were slightly alleviated after having loose stool. She was able to sleep through the night last night. Denies fevers but does endorse feeling a hot sensation when she feels nauseous. She had a headache yesterday that has resolved. She denies shortness of breath, cough, dizziness, lightheadedness. Review of Systems Review of Systems: All systems reviewed & are unremarkable except as noted in HPI and below Exam Narrative: General: well-nourished, well-appearing 67-year-old female, sitting on the side of the bed, comfortable, NARD Neuro: awake, alert and oriented x4, speech clear, no focal neuro deficits noted HEENMT: normocephalic, atraumatic, EOMI, sclerae anicteric,
--- NOTE | 2022-10-25 11:38 | PM.IMPN ---
Progress Note: A&P Assessment and Plan (1) Nausea & vomiting: Code(s): R11.2 - Nausea with vomiting, unspecified Status: Acute Assessment and Plan: patient presented with nausea and vomiting with inability to tolerate diet tolerated some clears today. Would like to advance to full liquid diet continue IV fluids until fully tolerating diet continue antiemetics as needed (2) Constipation: Code(s): K59.00 - Constipation, unspecified Status: Acute Assessment and Plan: patient reports no formed bowel movement for [address] of the abdomen/ pelvis completed with no abnormality, no impaction or obstruction evident KUB completed yesterday without obvious obstruction or infection patient is having loose stools but still no solid stool no improvement with soapsuds enema t.i.d., will discontinue at this time increase MiraLax to b.i.d., continue stool softener and Dulcolax suppository encourage increased ambulation consider repeat KUB tomorrow if no bowel movement (3) Electrolyte abnormality: Code(s): E87.8 - Other disorders of electrolyte and fluid balance, not elsewhere classified Status: Acute Assessment and Plan: hypokalemia: Potassium 2.9 today. Supplement with p.o. KCl and monitor labs hypomagnesemia: Magnesium 1.5. Supplement with IV magnesium sulfate (4) Rheumatoid arthritis: Code(s): M06.9 - Rheumatoid arthritis, unspecified Status: Chronic Assessment and Plan: chronic, no acute issues (5) Hyperlipidemia: Code(s): E78.5 - Hyperlipidemia, unspecified Status: Chronic Assessment and Plan: continue home atorvastatin liver enzymes are stable (6) Hypertension: Code(s): I10 - Essential (primary) hypertension Status: Chronic Assessment and Plan: blood pressures have been stable continue antihypertensives monitor BP trends (7) Anxiety: Code(s): F41.9 - Anxiety disorder, unspecified Status: Acute Assessment and Plan: no issues continue xanax 0.5 mg daily Subjective Date/time seen: 10/25/22 11:38 Interval history: date of service: 10/25/2022 Rosalind Brown is a 67-year-old female with a history of hypertension, hyperlipidemia, rheumatoid arthritis, IBS, and anxiety is seen in follow-up abdominal pain. Patient continues to endorse nausea today. She was not able to tolerate much of her liquid diet. she did have some Jell-O and most of her Chews. She denies any episodes of emesis. She has had 3-4 small volume loose stools but I yellowish in color today. She has not had any solid stool. She describes abdominal cramping which she believes is secondary to receiving an enema. States her symptoms were slightly alleviated after having loose stool. She was able to sleep through the night last night. Denies fevers but does endorse feeling a hot sensation when she feels nauseous. She had a headache yesterday that has resolved. She denies shortness of breath, cough, dizziness, lightheadedness. Review of Systems Review of Systems: All systems reviewed & are unremarkable except as noted in HPI and below Exam Narrative: General: well-nourished, well-appearing 67-year-old female, sitting on the side of the bed, comfortable, NARD Neuro: awake, alert and oriented x4, speech clear, no focal neuro deficits noted HEENMT: normocephalic, atraumatic, EOMI, sclerae anicteric, moist oral mucosa Respiratory: clear to auscultation bilaterally, nonlabored breathing Cardio: regular rate, regular rhythm with S1-S2 Abdomen: nondistended, normoactive bowel sounds, soft, nontender to palpation Extremities: no edema, erythema, or tenderness to palpation Skin: no rashes or lesions, warm and dry Psych: appropriate mood and affect, judgment and insight intact Objective Data Vital Signs Vital Signs: Vital Signs - 24 hr 10/24/22 1
[2022-10-25] MEDS: MAGNESIUM SULF 2 GM/WATER 50ML 2 GM/50 ML BAG IVPB (12:09)
[2022-10-25 14:56] VITALS: BP 143/78; PULSE 77; RESP 20; TEMP 36.6; O2SAT 100
[2022-10-25 19:40] VITALS: O2SAT 100
[2022-10-25] MEDS: MIRTAZAPINE 30 MG TABLET PO (20:10)
[2022-10-25 22:13] VITALS: BP 117/73; PULSE 79; RESP 18; TEMP 36.8; O2SAT 97
[2022-10-26 05:22] VITALS: BP 134/80; PULSE 73; RESP 18; TEMP 36.3; O2SAT 97
[2022-10-26 05:46] LABS: Hematocrit 36.3 % (37.0-47.0); Hemoglobin 12.3 g/dL (12.0-15.0); Mean Corpuscular HGB Conc 33.9 g/dl (32-36); Mean Corpuscular Hemoglobin 32.9 pg (26-34); Mean Corpuscular Volume 97.1 fl (80-100); Platelet Count Result 426 k/mm3 (150-375); Red Blood Count 3.74 M/mm3 (4.2-5.4); Red Cell Distribution Width 14.3 % (11.5-14.5); White Blood Count 7.7 K/mm3 (4.5-10.0)
[2022-10-26 05:55] LABS: Anion Gap 8 mmol/L (8-16); Blood Urea Nitrogen 7 mg/dL (7-17); Calcium 7.7 mg/dL (8.4-10.2); Carbon Dioxide 23 mmol/L (22-30); Chloride 107 mmol/L (98-107); Estimated CRCL calculation 59 ml/min; Estimated Glomerular Filt Rate > 60; Glucose 90 mg/dL (65-110); Magnesium 2.1 mg/dL (1.6-2.3); Potassium 3.4 mmol/L (3.4-5.0); Sodium 138 mmol/L (137-145)
[2022-10-26 06:00] VITALS: BP 144/79; PULSE 73; RESP 20; TEMP 36.3; O2SAT 98
--- NOTE | 2022-10-26 06:02 | PC.NURSE ---
pt up to restroom this shift, episode of weakness, stated felt nauseous, used w/c to put back to bed. MD Jensen called. vs 144/79 97.3 20 98% ra 73 pt potassium has been running low. last potassium 2.9 received supplemental potassium on day shift 10/25/22. Awaiting morning potassium level, labs already drawn this morning.
[2022-10-26] MEDS: ONDANSETRON INJ 4 MG/2 ML VIAL IV PUSH ×2 (06:07→14:15)
[2022-10-26] MEDS: ATORVASTATIN 10 MG TABLET PO (08:41)
[2022-10-26] MEDS: estradioL 1 MG TABLET PO (08:42)
[2022-10-26] MEDS: ENOXAPARIN 40 MG/0.4 ML SYRINGE SUB-Q (08:42)
[2022-10-26] MEDS: lisinopriL 20 MG TABLET PO (08:42)
[2022-10-26] MEDS: hydroCHLOROthiazide 25 MG TABLET PO (08:42)
[2022-10-26] MEDS: MELOXICAM 7.5 MG TABLET PO (08:43)
[2022-10-26] MEDS: valACYclovir HCL 500 MG TABLET 1000 MG PO (08:43)
[2022-10-26] MEDS: ALPRAZolam (*CRX) 0.5 MG TABLET PO ×2 (08:45→15:13)
--- NOTE | 2022-10-26 09:30 | PM.IMPN ---
Progress Note: A&P Assessment and Plan (1) Nausea & vomiting: Code(s): R11.2 - Nausea with vomiting, unspecified Status: Acute Assessment and Plan: patient presented with nausea and vomiting with inability to tolerate diet tolerating diet at this time continue IV fluids until fully tolerating diet, consider stopping if lightheaded and dizziness resolves continue antiemetics as needed (2) Constipation: Code(s): K59.00 - Constipation, unspecified Status: Acute Assessment and Plan: patient reports no formed bowel movement for [address] of the abdomen/ pelvis completed with no abnormality, no impaction or obstruction evident KUB completed yesterday without obvious obstruction or infection patient is having loose stools but still no solid stool increase MiraLax to b.i.d., continue stool softener and Dulcolax suppository, hold for now as she is having >8BM daily encourage increased ambulation KUB ordered at this time (3) Electrolyte abnormality: Code(s): E87.8 - Other disorders of electrolyte and fluid balance, not elsewhere classified Status: Acute Assessment and Plan: hypokalemia: Potassium 3.4 today. Supplement with p.o. KCl and monitor labs hypomagnesemia: Magnesium 2.1. Supplement with IV magnesium sulfate as indicated (4) Rheumatoid arthritis: Code(s): M06.9 - Rheumatoid arthritis, unspecified Status: Chronic Assessment and Plan: chronic, no acute issues (5) Hyperlipidemia: Code(s): E78.5 - Hyperlipidemia, unspecified Status: Chronic Assessment and Plan: continue home atorvastatin liver enzymes are stable (6) Hypertension: Code(s): I10 - Essential (primary) hypertension Status: Chronic Assessment and Plan: blood pressures have been stable continue antihypertensives monitor BP trends (7) Anxiety: Code(s): F41.9 - Anxiety disorder, unspecified Status: Acute Assessment and Plan: no issues Continue xanax 0.5 mg TID Time Spent With Patient Time with patient: Greater than 35 minutes Subjective Date/time seen: 10/26/22 09:30 Interval history: 10/26/22929 Patient stated that she had 8 BMs overnight. She stated that she then was getting lightheaded and dizzy. She described it as yellow an mucosy looking. Will hold on the stool softeners and laxatives. She is getting very anxious, however, it is controlled with the Xanax. Bowel sounds are hyperactive and she does appear weak and just tired. Ordered a KUB for signs of improvement. It seems as if she just might be a bit dehydrated. She is able to eat, and has an appetite. Seems to be resolving at some degree. She denies any chest pain, shortness of breath, fevers, sweats or chills. She did state that the nausea is better, and the pain is also better. date of service: 10/25/2022 Rosalind Brown is a 67-year-old female with a history of hypertension, hyperlipidemia, rheumatoid arthritis, IBS, and anxiety is seen in follow-up abdominal pain. Patient continues to endorse nausea today. She was not able to tolerate much of her liquid diet. she did have some Jell-O and most of her Chews. She denies any episodes of emesis. She has had 3-4 small volume loose stools but I yellowish in color today. She has not had any solid stool. She describes abdominal cramping which she believes is secondary to receiving an enema. States her symptoms were slightly alleviated after having loose stool. She was able to sleep through the night last night. Denies fevers but does endorse feeling a hot sensation when she feels nauseous. She had a headache yesterday that has resolved. She denies shortness of breath, cough, dizziness, lightheadedness. Review of Systems Review of Systems: All systems reviewed & are unremarkable except as noted in HPI and below Exam Const: Gen
[2022-10-26] MEDS: SODIUM CHLORIDE 0.9% IV 1,000 ML 75 ML IV CONT (11:39)
[2022-10-26 14:00] VITALS: BP 134/69; PULSE 79; RESP 16; TEMP 36.2; O2SAT 97
[2022-10-26] MEDS: MIRTAZAPINE 30 MG TABLET PO (20:16)
[2022-10-26] MEDS: FLUCONAZOLE 100 MG TABLET PO (20:16)
[2022-10-26 22:00] VITALS: BP 132/73; PULSE 70; RESP 16; TEMP 36.6; O2SAT 97
[2022-10-27] MEDS: SODIUM CHLORIDE 0.9% IV 1,000 ML 75 ML IV CONT (00:56)
[2022-10-27 06:00] VITALS: BP 139/75; PULSE 71; RESP 18; TEMP 35.8; O2SAT 97
[2022-10-27 06:09] LABS: Basophils Absolute Auto 0.1 K/mm3 (0.0-0.1); Basophils Percent Auto 0.7 % (0.2-1.2); Eosinophils Absolute Auto 0.3 K/mm3 (0-0.3); Eosinophils Percent Auto 3.3 % (0-4.4); Hematocrit 35.7 % (37.0-47.0); Immature Granulocyte Absolute 0.03 K/mm3 (0.00-0.031); Immature Granulocyte Percent A 0.4 % (0-0.5); Lymphocytes Absolute Auto 2.06 K/mm3 (0.9-3.2); Lymphocytes Percent Auto 27.3 % (18.3-44.2); Mean Corpuscular HGB Conc 33.6 g/dl (32-36); Mean Corpuscular Hemoglobin 32.8 pg (26-34); Mean Corpuscular Volume 97.5 fl (80-100); Mean Platelet Volume 9.5 fl (7.4-10.4); Monocytes Absolute Auto 0.7 K/mm3 (0.1-0.6); Monocytes Percent Auto 9.7 % (2.6-8.5); Neutrophils Absolute Auto 4.4 K/mm3 (1.3-6.7); Neutrophils Percent Auto 58.6 % (45.5-73.1); Platelet Count Result 438 k/mm3 (150-375); Red Blood Count 3.66 M/mm3 (4.2-5.4); Red Cell Distribution Width 14.3 % (11.5-14.5); White Blood Count 7.6 K/mm3 (4.5-10.0)
[2022-10-27 06:21] LABS: Alanine Aminotransferase 10 U/L (6-35); Albumin Level 3.2 g/dL (3.5-5.1); Alkaline Phosphatase 60 U/L (38-126); Anion Gap 6 mmol/L (8-16); Aspartate Amino Transferase 20 U/L (14-36); Bilirubin,Total 0.3 mg/dL (0.2-1.3); Blood Urea Nitrogen 10 mg/dL (7-17); Calcium 7.7 mg/dL (8.4-10.2); Carbon Dioxide 24 mmol/L (22-30); Chloride 107 mmol/L (98-107); Estimated CRCL calculation 59 ml/min; Estimated Glomerular Filt Rate > 60; Glucose 88 mg/dL (65-110); Magnesium 1.7 mg/dL (1.6-2.3); Potassium 3.3 mmol/L (3.4-5.0); Sodium 137 mmol/L (137-145)
[2022-10-27] MEDS: ENOXAPARIN 40 MG/0.4 ML SYRINGE SUB-Q (08:07)
[2022-10-27] MEDS: ATORVASTATIN 10 MG TABLET PO (08:07)
[2022-10-27] MEDS: MELOXICAM 7.5 MG TABLET PO (08:08)
[2022-10-27] MEDS: estradioL 1 MG TABLET PO (08:08)
[2022-10-27] MEDS: hydroCHLOROthiazide 25 MG TABLET PO (08:08)
[2022-10-27] MEDS: lisinopriL 20 MG TABLET PO (08:08)
[2022-10-27] MEDS: valACYclovir HCL 500 MG TABLET 1000 MG PO (08:09)
[2022-10-27] MEDS: MAGNESIUM SULF 2 GM/WATER 50ML 2 GM/50 ML BAG IVPB (09:16)
[2022-10-27] MEDS: POTASSIUM CHLORIDE 20 MEQ TABLET PO (09:16)
--- NOTE | 2022-10-27 13:22 | PM.DS ---
DS: Admitting Diagnosis Discharge Date 10/27/2022 Admitting Diagnosis Nausea and vomiting DS: Discharge Diagnosis Discharge Diagnosis (1) Nausea & vomiting: Code(s): R11.2 - Nausea with vomiting, unspecified Status: Acute Assessment and Plan: Patient presented with nausea and vomiting with inability to tolerate diet. She was rehydrated with IV fluids and diet was slowly advanced. Patient was able to tolerate a bland diet. Antiemetics provided as needed. Etiology not entirely clear, CT of abdomen/pelvis showed no acute abnormalities. Symptoms resolved (2) Constipation: Code(s): K59.00 - Constipation, unspecified Status: Acute Assessment and Plan: Patient reported no formed bowel movement for [address] of the abdomen/ pelvis completed with no abnormality, no impaction or obstruction evident KUB without obvious obstruction or infection. Received enema which induced loose stools but no solid stool. Enema was discontinued and MiraLax is increased to b.i.d. with stool softener and Dulcolax suppository. Patient had bowel movement following this and was feeling improved. (3) Irritable bowel syndrome: Code(s): K58.9 - Irritable bowel syndrome without diarrhea Status: Acute Assessment and Plan: Wonder if her symptoms are related to this. Patient did endorse some abdominal cramping. Short course of dicyclomine provided as needed for discomfort. (4) Electrolyte abnormality: Code(s): E87.8 - Other disorders of electrolyte and fluid balance, not elsewhere classified Status: Acute Assessment and Plan: Patient with mild hypokalemia, likely secondary to nausea/vomiting and loose stool. Potassium was supplemented. Anticipate complete resolution with improvement of diarrhea and advancing diet. Magnesium was low 1.5 and was supplemented. Also suspect secondary to nausea/vomiting/decreased p.o. intake and anticipate resolution (5) Rheumatoid arthritis: Code(s): M06.9 - Rheumatoid arthritis, unspecified Status: Chronic Assessment and Plan: Chronic, no acute issues (6) Hyperlipidemia: Code(s): E78.5 - Hyperlipidemia, unspecified Status: Chronic Assessment and Plan: Continue home atorvastatin. Liver enzymes are stable (7) Hypertension: Code(s): I10 - Essential (primary) hypertension Status: Chronic Assessment and Plan: Blood pressures remained stable. Continue antihypertensives (8) Anxiety: Code(s): F41.9 - Anxiety disorder, unspecified Status: Acute Assessment and Plan: No issues. Continue xanax 0.5 mg TID DS: Summary Hospital Course Hospital Course: Date of admission: 10/24/2022 Date of discharge: 10/27/2022 Rosalind Brown is a 67-year-old female with a history of hypertension, hyperlipidemia, rheumatoid arthritis, IBS, and anxiety who presented to the emergency department on 10/24/2022 under the direction of her primary care provider for evaluation of abdominal pain, nausea, vomiting. Patient in the ED [address] scan of the abdomen and pelvis and was referred to outpatient GI. She was having increased difficulty tolerating her diet, therefore returned on 10/24/2022. Upon presentation, her vital signs were stable and she was afebrile. She was admitted to the hospitalist service for further evaluation and management. There was concern for constipation and patient had enema and laxatives with resolution. She did develop loose stools following this. Eventually was able to slowly advance to a regular diet which she was able to tolerate. Stools were formed. She was slowly starting to feel improved and requested discharge home with close follow up with PCP. She will call first thing Friday morning 10/28 and anticipates she will be brought in for an appointment on Friday or Friday. Discussed with the patient worrisome signs and symptoms for whi
== END 2022-10-27 14:04 | disposition home or self-care (01) ==
LOC: ANHED 07:48 → ANH2MED 08:45
PROVIDERS: Emergency Medicine; Nurse Practitioner; Admitting Provider Family Medicine; Emergency Provider Preventive Medicine Aerospace Medicine; PCP Internal Medicine; Visit Provider Physician Assistant
DX: R11.2 Nausea with vomiting, unspecified (principal); E87.8 Other disorders of electrolyte and fluid balance, not elsewhere classified; K58.1 Irritable bowel syndrome with constipation; I10 Essential (primary) hypertension; E78.5 Hyperlipidemia, unspecified; M06.9 Rheumatoid arthritis, unspecified; M35.9 Systemic involvement of connective tissue, unspecified; F41.9 Anxiety disorder, unspecified; F12.90 Cannabis use, unspecified, uncomplicated
CPT/HCPCS: 36415; 74018; 80048; 80053; 82040; 83690; 83735; 85025; 85027; 87636; 96361; 96365; 96366; 96372; 96374; 96375; 96376; 99285; A9270; G0378; J1200; J1650; J2405; J2765; J3475; J7030

== ENCOUNTER 2022-12-04 10:54 | Outpatient (CLI) | payer MEDICARE, SELFPAY ==
[2022-12-04 11:42] LABS: Hematocrit 39.5 % (37.0-47.0); Hemoglobin 13.5 g/dL (12.0-15.0); Mean Corpuscular HGB Conc 34.2 g/dl (32-36); Mean Corpuscular Hemoglobin 32.9 pg (26-34); Mean Corpuscular Volume 96.3 fl (80-100); Mean Platelet Volume 9.4 fl (7.4-10.4); Platelet Count Result 546 k/mm3 (150-375); Red Cell Distribution Width 13.4 % (11.5-14.5); White Blood Count 8.9 K/mm3 (4.5-10.0)
[2022-12-04 11:57] LABS: Alanine Aminotransferase 13 U/L (6-35); Albumin Level 4.4 g/dL (3.5-5.1); Alkaline Phosphatase 87 U/L (38-126); Anion Gap 9 mmol/L (8-16); Aspartate Amino Transferase 21 U/L (14-36); Bilirubin,Total 0.2 mg/dL (0.2-1.3); Blood Urea Nitrogen 23 mg/dL (7-17); CRP 0.6 mg/dL (<1.0); Calcium 9.2 mg/dL (8.4-10.2); Carbon Dioxide 27 mmol/L (22-30); Chloride 99 mmol/L (98-107); Estimated Glomerular Filt Rate > 60; Glucose 106 mg/dL (65-110); Magnesium 1.7 mg/dL (1.6-2.3); Potassium 3.2 mmol/L (3.4-5.0); Sodium 135 mmol/L (137-145)
[2022-12-04 14:33] LABS: Erythrocyte Sedimentation Rate 14 mm/hr (0-20)
[2022-12-08 07:49] LABS: Tissue Transglutaminase IgA Ab <1.0 U/mL (<15.0)
[2022-12-08 09:39] LABS: Tissue Transglutaminase IgG Ab <1.0 U/mL (<15.0)
== END 2022-12-04 10:55 | disposition home or self-care (01) ==
PROVIDERS: PCP Internal Medicine; Visit Provider Nurse Practitioner
DX: R19.7 Diarrhea, unspecified (principal); R10.30 Lower abdominal pain, unspecified; E87.8 Other disorders of electrolyte and fluid balance, not elsewhere classified; R93.3 Abnormal findings on diagnostic imaging of other parts of digestive tract
CPT/HCPCS: 36415; 80053; 83516; 83735; 84443; 85027; 85652; 86140

== ENCOUNTER 2022-12-05 10:12 | Outpatient (CLI) | payer MEDICARE, SELFPAY ==
[2022-12-05 13:27] LABS: Toxigenic C. Diff NEGATIVE (NEGATIVE)
[2022-12-08 07:49] LABS: H pylori Ag Stool Not Detected (Not Detected)
[2022-12-13 22:16] LABS: Calprotectin, Stool 48 mcg/g
== END 2022-12-05 10:13 | disposition home or self-care (01) ==
LOC: ANHLAB 10:13
PROVIDERS: PCP Internal Medicine; Visit Provider Nurse Practitioner
DX: E87.8 Other disorders of electrolyte and fluid balance, not elsewhere classified (principal); R10.30 Lower abdominal pain, unspecified; R19.7 Diarrhea, unspecified; A04.8 Other specified bacterial intestinal infections
CPT/HCPCS: 83993; 87045; 87269; 87338; 87427; 87493

== ENCOUNTER 2023-09-12 08:38 | Outpatient (CLI) | payer MEDICARE, SELFPAY ==
--- NOTE | ~2023-09-12 | MM_ITS ---
EXAMINATION: MM screening tyrel BI w mary HISTORY: Screening mammogram TECHNIQUE: Craniocaudal and mediolateral oblique 3-D tomosynthesis images were obtained and synthetic 2-D images were generated. CAD analysis was submitted and interpreted. COMPARISON: 07/12/2022 bilateral screening mammogram 04/26/2021 diagnostic left mammogram and limited left breast ultrasound 02/07/2021, 01/10/2020, 01/05/2019 bilateral screening mammogram examinations BREAST PARENCHYMAL COMPOSITION: FINDINGS: There are 3 biopsy markers on the right; history of 3 prior benign right breast biopsies. There are numerous bilateral low-density circumscribed opacities consistent with multiple bilateral b reast cysts, with waxing and waning of cysts evident over serial examinations dating back to 01/05/2019 .. There is no evidence of suspicious mass, calcification, or architectural distortion to suggest malign tacos in either breast. There has been no suspicious interval change. IMPRESSION: 1. No mammographic evidence of malignancy. 2. Recommend routine screening mammography in one year. BI-RADS Category 2: Benign finding(s). Reviewed, dictated and finalized at location A.
== END 2023-09-12 08:39 | disposition home or self-care (01) ==
LOC: ANHIMG 08:40
PROVIDERS: PCP Internal Medicine; Visit Provider Registered Nurse
DX: Z12.31 Encounter for screening mammogram for malignant neoplasm of breast (principal)
CPT/HCPCS: 77063; 77067

== ENCOUNTER 2024-10-05 08:35 | Outpatient (CLI) | payer MEDICARE, SELFPAY ==
--- NOTE | ~2024-10-05 | MM_ITS ---
EXAMINATION: MM screening tyrel BI w mary HISTORY: Screening TECHNIQUE: Craniocaudal and mediolateral oblique 3-D tomosynthesis images were obtained and synthetic 2-D images were generated. CAD analysis was submitted and interpreted. COMPARISON: Comparison to multiple prior studies sequentially, with oldest reviewed study dated 03/2019. BREAST PARENCHYMAL COMPOSITION: Dense: The breasts are heterogeneously dense, which may obscure small masses FINDINGS: There are multiple bilateral breast masses which are stable or decreased in size compared w ith prior studies, consistent with benign masses. There is no evidence of suspicious mass, calcificat ion, or architectural distortion to suggest malignancy in either breast. There has been no suspicious interval change. IMPRESSION: 1. No mammographic evidence of malignancy. 2. Recommend routine screening mammography in one year. BI-RADS Category 2: Benign finding(s). Reviewed, dictated and finalized at location B. 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
== END 2024-10-05 08:36 | disposition home or self-care (01) ==
LOC: ANHIMG 08:36
PROVIDERS: PCP Internal Medicine; Visit Provider Obstetrics & Gynecology
DX: Z12.31 Encounter for screening mammogram for malignant neoplasm of breast (principal)
CPT/HCPCS: 77063; 77067

== ENCOUNTER 2025-04-18 09:00 | Outpatient (CLI) | payer MEDICARE, SELFPAY ==
--- NOTE | ~2025-04-18 | DEXA_ITS ---
Bone Density Report Name: JAVIER FLETCHER Age: 69 Sex: Female Ethnicity: White Date of : 1955 Indication: postmenopausal; screening for osteoporosis; hysterectomy; Referring Provider: HOOD, MALINDA Hassan Study: Bone densitometry was performed. Exam Date: April 18, 2025 Accession number: [id number] Bone Density: Region BMD T-score Z-score Classification AP Spine(L1-L4) 0.999 -0.4 1.6 Normal Femoral Neck (Left) 0.559 -2.6 -0.9 Osteoporosis Total Hip (Left) 0.758 -1.5 -0.1 Osteopenia Femoral Neck (Right) 0.539 -2.8 -1.1 Osteoporosis Total Hip (Right) 0.798 -1.2 0.3 Osteopenia Total Hip Mean 0.778 -1.4 0.1 Osteopenia World Health Organization criteria for BMD impression classify patients as: Normal (T-score at or above -1.0), Osteopenia (T-score between -1.0 and -2.5), or Osteoporosis (T-score at or below -2.5). 10-year Fracture Risk: FRAX not reported because: Some T-score for Spine Total or Hip Total or Femoral Neck at or below -2.5 Clinical Information Provided by Patient: Has used the following medications: HRT (i.e. estrogen/hormone therapy) Has the following medical conditions: Hysterectomy Patient maximum height was 60.0 Menopause Age: 44 Drinks caffeinated beverages Onset of menses at age 15 Number of children 1 Impression: The patient has osteoporosis, based on the Right Femoral Neck T-score. Discussion: INCREASED RISK OF FRACTURE. BONE DENSITY IS UNDESIRABLY LOW AT ONE OR MORE SKELETAL SITES, CONSISTENT WITH POSTMENOPAUSAL OSTEOPOROSIS. This patient's lowest T-score meets the World Health Organization's (WHO) criteria for osteoporosis at one or more sites (T-score -2.5 or below). In untreated patients, the risk of osteoporotic fracture increases approximately two-fold for each 1.0 SD decrease in T-score. Low bone density is not the only risk factor for fracture; also consider factors such as patient's age, frailty or poor health, risk of falling, risk of injury, previous osteoporotic fracture, family history of osteoporosis, cigarette smoking, low body weight, etc. Not everyone with low bone mineral density has osteoporosis; osteomalacia and other metabolic bone disorders should also be considered. Patients who have osteoporosis should be evaluated for specific diseases and conditions (secondary causes) that may cause or contribute to bone loss. The [place] Association of Clinical Endocrinologists (AACE) and National Osteoporosis Foundation (NOF) recommend pharmacologic intervention for all postmenopausal women whose T-score is in this range. The patient should follow a healthful lifestyle (good nutrition with adequate calcium and vitamin D, and appropriate weight-bearing exercise). Follow-Up: Consider a repeat BMD and Vertebral Fracture Assessment (VFA) exam in 2 years or sooner if medically necessary, to reassess this patient's status. Reported by: JOHANA on 04/18/2025 9:37:00 AM. Reviewed, dictated and finalized at location A.
--- OUTSIDE RECORDS SUMMARY | 2025-04-18 09:22 | XMS_ITS | Clinical Summary ---
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 Gender Identity Not on file Sexual Orientation Not on file Plan of Treatment Health Maintenance Due Date Last Done Comments Colorectal Cancer Screening Colonoscopy (10 Years) 1956 Hepatitis C 1974 DTaP, Tdap and Td Vaccines ( 1 - Tdap) 1975 Mammogram Screening 1996 Pneumococcal Vaccine: 50+ Ye ars (1 of 1 - PCV) 2006 Zoster Vaccines (1 of 2) 2006 Dexa Scan (General) 2021 COVID-19 Vaccine (2023-2 5 season) 2024 RSV Immunization or 60+ Years (1 - 1-dose 75+ series) 2031 Meningococcal B Vaccine Aged Out No l onger eligible based on patient's age to complete this topic Meningococcal Vaccine Aged Out No andreina quan eligible based on patient's age to complete this topic RSV Immunizations Under 20 Months Aged Out No longer eligible based on patient's age to complete this topic
--- OUTSIDE RECORDS SUMMARY | 2025-04-18 09:22 | XMS_ITS | Clinical Summary ---
Author Organization [facility] Address [address] [place] [address] Care Team Providers Care Business Analyst Manager Name Role Phone Luis Carlos Wade MD Primary Care Provider Allergies Active Allergy Reactions Criticality Noted Date Comments Duloxetine Shortness of breath High 08/27/2017 Hydroxychloroquine Hives Medium 08/27/2017 Medications ALPRAZolam (XANAX) 1 mg tablet Take 1 mg by mouth as needed for anxiety. Active valACYclovir (VALTREX) 1 gram tablet Take 1,000 mg by mouth daily. Active estradiol (ESTRACE) 1 mg tablet Take 1 mg by mouth daily. Active pregabalin (LYRICA) 100 mg capsule Take 150 mg by mouth 3 (three) times a day Active traMADol (ULTRAM) 50 mg tablet Take 50 mg by mouth every 6 (six) hours. Active amitriptyline (ELAVIL) 10 mg tablet Take 10 mg by mouth nightly Active atorvastatin (LIPITOR) 10 mg tablet Take 10 mg by mouth daily 06/13/2021 Active chlorthalidone 25 mg tablet Take 25 mg by mouth daily 05/22/2021 Active lisinopriL (PRINIVIL,ZESTR [place]) 20 mg tablet Take 20 mg by mouth daily 05/08/2021 Active tamsulosin (FLOMAX) 0.4 mg extended release capsule TAKE 1 CAPSULE BY MOUTH ONCE DAILY. 30 capsule 6 10/19/2021 Active Active Problems Problem Noted Date Diagnosed Date Flank pain 2021 History of kidney stones 2021 Surgical History Surgery Date Site/Laterality Comments HYSTERECTOMY INCONTINENCE SURGERY Medical History Medical History Date Comments History of hysterectomy Anxiety Arthritis Lupus Neuropathy Plantar fibromatosis Kidney stone Family History Medical History Relation Name Comments Hypertension Father Relation Name Status Comments Father Mother Social History Tobacco Use Types Packs/Day Years Used Date Smoking Tobacco: Never Smokeless Tobacco: Never Alcohol Use Standard Drinks/Week Comments No 0 (1 standard drink = 0.6 oz pur e alcohol) Personal Safety Answer Date Recorded Getting School Help Needed Not on file 12/06 Comments No Sex and Gender Information Value Date Recorded Sex Assigned at Not on file Legal Sex Female 3:54 PM ORAL THERAPIST Gender Identity Not on file Sexual Orientation Not on file Obstetrics History Last Filed Vital Signs Vital Sign Reading Time Taken Comments Blood Pressure 133/82 11/26/2022 5:10 PM ORAL THERAPIST Pulse 97 11/26/2022 11:02 AM ORAL THERAPIST Temperature 36.7 C (98 F) 11/26/2022 11:02 AM ORAL THERAPIST Respiratory Rate 18 11/26/2022 11:02 AM ORAL THERAPIST Oxygen Saturation 100% 11/26/2022 11:02 AM ORAL THERAPIST Inhaled Oxygen Concentration - - Weight 54.4 kg (120 lb) 11/26/2022 11:00 AM ORAL THERAPIST Height 152.4 cm (5') 11/26/2022 11:00 AM ORAL THERAPIST Body Mass Index 23.44 11/26/2022 11:00 AM ORAL THERAPIST Plan of Treatment Health Maintenance Due Date Last Done Comments Breast Cancer Screening-Mammogram 1956 Colon Cancer Screening-Colonoscopy 1956 Depression Screening 1956 Fall Risk Assessment 1956 Hepatitis C Screening 1956 Osteoporosis Screening-Bone Density Scan 1956 DTaP/Tdap/Td Vaccine (1 - Tdap) 1967 Hepatitis B Screening 1974 Pneumococcal vaccine 65+ (1 of 1 - PCV) 2006 Zoster Vaccine (1 of 2) 2006 Well Visit 65+ 2021 Influenza Vaccine (#1) 2024 09/24/2013 Insurance [facility] MEDICARE ADVANTAGE UHC MEDICARE ADVANTAGE [place] [id number] Care Teams Business Analyst Manager Relationship Specialty Start Date End Date Luis Carlos Wade MD PCP - General 04/04/17
--- OUTSIDE RECORDS SUMMARY | 2025-04-18 09:22 | XMS_ITS | Clinical Summary ---
Author Organization [facility] Address [address] [place] [address] Care Team Providers Care Sewer Head Name Role Phone Luis Carlos Wade MD Primary Care Provider [phone] Allergies Active Allergy Reactions Criticality Noted Date Comments Opioids - Morphine Analogues Unknown 018 Medications estradiol (ESTRACE) 1 mg tablet Take 1 mg by mouth. Active pregabalin (LYRICA) 100 mg Capsule Take 100 mg by mouth. Active traMADol (ULTRAM) 50 mg tablet Take 50 mg by mouth. Active ALPRAZolam (XANAX) 1 mg tablet Take 1 mg by mouth. Active valACYclovir (VALTREX) 1 gram tablet Take 1,000 mg by mouth. Active Evening [place] Oil 500 mg Capsule Take 2,600 mg by mouth. Active amitriptyline (ELAVIL) 10 mg tablet 8 Active predniSONE (DELTASONE) 5 mg tablet Continuous as needed . 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 Resolved Problems Problem Noted Date Diagnosed Date Resolved Date Abnormal ultrasound of breast 05/14/2018 01/24/2019 Abnormal mammogram of right breast 05/14/2018 01/24/2019 Lump of breast, right 05/14/20182018 Lump of left breast 05/14/2018 01/24/20 19 Social History Tobacco Use Types Packs/Day Years Used Date Smoking Tobacco: Never Smokeless Tobacco: Never Alcohol Use Standard Drinks/Week Comments No 0 (1 standard drink = 0.6 oz pur e alcohol) Comments No Sex and Gender Information Value Date Recorded Sex Assigned at Not on file Legal Sex Female 4:22 PM CDT Gender Identity Not on file Sexual Orientation Not on file Last Filed Vital Signs Vital Sign Reading Time Taken Comments Blood Pressure 130/86 01/22/2019 11:41 AM SENIOR STAFF PSYCHOLOGIST Pulse 78 01/22/2019 11:41 AM SENIOR STAFF PSYCHOLOGIST Temperature 36.2 C (97.2 F) 01/22/2019 11:41 AM SENIOR STAFF PSYCHOLOGIST Respiratory Rate - - Oxygen Saturation 98% 01/22/2019 11: 41 AM SENIOR STAFF PSYCHOLOGIST Inhaled Oxygen Concentration - - Weight 58.9 kg (129 lb 12.8 oz) 019 11:41 AM SENIOR STAFF PSYCHOLOGIST Height 152.4 cm (5') 01/22/2019 11:41 AM SENIOR STAFF PSYCHOLOGIST Body Mass Index 25.35 01/22/2019 11:41 AM SENIOR STAFF PSYCHOLOGIST Plan of Treatment Health Maintenance Due Date Last Done Comments DTAP/TDAP/TD VACCINES (1 - Tdap) 1975 COLORECTAL SCREENING 2001 Colorectal Cancer Screening 2001 FIT-DNA Q 3 years 2001 FIT/FOBT Q 1 year 2001 Flex Sig/CT Colonography Q 5 years 2001 PNEUMOCOCCAL VACCINE 50+ YEA RS (1 of 1 - PCV) 2006 ZOSTER VACCINE (1 of 2) 2006 BREAST CANCER SCREENING 01/05/2020 01/05/20 19, 06/02/2018, 12/08/2017 OSTEOPOROSIS SCREENING 2021 INFLUENZA VACCINE (#1) 2024 RSV VACCINE (60+ or ) (1 - 1-dose 75+ series) 2031 Procedures Procedure Name Priority Date/Time Associated Diagnosis Comments MAMMO SCREEN BILAT W OR WO CAD Routine 01/05/2019 from Last 3 Months or Most Recently Relevant to Health Maintenance Results * MAMMO SCREEN BILAT W OR WO CAD (01/05/2019) Anatomical Region Laterality Modality Breast Bilateral Mammography us Abstract Provider MAMMO ORDERABLES Final Result from Last 3 Months or Most Recently Relevant to Health Maintenance Insurance [employer] BLUE ACCESS CHOICE Care Teams Sewer Head Relationship Specialty Start Date End Date Luis Carlos Wade MD [address] [facility] [address] [place] [id number] PCP - General Internal Medicine 05/14/18
--- OUTSIDE RECORDS SUMMARY | 2025-04-18 09:22 | XMS_ITS | Data Portability ---
Author Organization [place] [facility], Main Office Address [address] [place] [address] Care Team Providers Care Nurse Liaison Name Role Phone MALINDA WADE Primary Care Provider MALINDA WADE Referring Provider Assessment Encounter Date Assessment Date Assessment LastModified by Organization Details LastModified Time 04/05/2024 04/05/2024 The patient has a gastrocnemius strain right calf. Today's x-rays are unremarkable exam shows pain and tenderness throughout the calf with new ecchymosis after missed stepping off the stepladder. I have advised her work on some gentle stretching modify her activity a bit. Use elevation for swelling control if necessary really not too swollen today. She will use an Jimmy wrap for support as well. We will see her back in 2 weeks she will use heat and stretching to help with getting her motion back she has not to do anything heavy repetitive for now take it easy. If she has any further problems difficulties or questions she is instructed call she voiced understanding and agrees with Not available 04/05/2024 11:22:00 04/19/2024 04/19/2024 The patient has resolving right calf gastrocnemius strain. Overall is improving since her injury. I have advised her it may take a month or 2 to get through this completely from here. She is going to work on some gentle strengthening and invic-pq-wfmejo exercises she can start to wean back into her normal activities as tolerated not overdo it go slowly with it. She voiced understanding agrees above plan I will see her back as needed she will call for any further problems difficulties or questions. Not available 04/19/2024 10:41:06 10/14/2024 10/14/2024 The patient has moderately severe primary osteoarthritis both knees right worse than left as described. We talked about treatment options today she wanted to proceed with cortisone therefore under sterile conditions I injected the patient's bilateral knee joints in the office today with 4 cc 0.5% bupivacaine and 20 mg of Kenalog each. The patient tolerated the procedures well. Her new x-rays today did not show any significant change compared to previous x-rays done 1 year ago. We will see if we can get her by with conservative measures for now she does well with cortisone and occasional oral prednisone. She voiced understanding and agreed with the above plan I will see her back as needed as she will be going to [place] soon for a few months. Not available 10/14/2024 11:57:41 Plan of Treatment Reminders Order Date Submit Date Provider Last Modified By Organization Details Last Modified Time Details Appointments None recorded. Lab lipid panel, serum 2024 [facility], [address] [place], [address], 5 06:39:00 CMP, serum or plasma 2024 025 [facility], [address] [place], [address], 5 06:39:02 CBC w/ auto diff 2024 025 [facility], [address] [place], [address], 5 06:39:04 lipid panel, serum 2023 024 [facility], [address] [place], [address], 4 05:59:00 CMP, serum or plasma 2023 024 [facility], [address] [place], [address], 4 05:59:01 Referral None recorded. Procedures injection/a spiration joint/bursa (PROC) 2023 024 [facility]ass4 In-Office Order, Internal Use Only DO Not Attach Compendium DO Not Attach Compendium, Do Not Delete/merge, [id number] 4 11:11:09 Surgeries None recorded. Imaging XR, knee 2023 024 [facility], [address], [place], [address], 4 11:59:36 XR, tibia + fibula, 2 view 2023 024 [facility], [address], [place], [address], 4 13:04:34 Medication Orders bupivacaine HCl 0.5 % (5 mg/mL) injection solution 2023 024 [id number], [address], [place], [place], [id number], 5 12:11:20 Kenalog 10 mg/mL suspension for injection 2023 024 [facility] #[id number], [address], [place], [place], [id number], 5 12:11:32 Patient TargetsNo targets recorded. Patient Instructions Encounter Date Encounter Id Patient Instructions Last Modified By Organization Details Last Modified Time 09/07/2024 [id number] Follow-up essent ial hypertension, hyperlipidemia and GERD all clinically stable. Will continue on current medications. Does need a bone density scan. Check blood work consisting of a CMP and lipid panel. Follow-up in six months. Follow Up: 6 Months Approximate Date: 03/06/2025 Portions of the record may have been created with voice recognition software. Occasional wrong-word or s ound-a-like substitutions may have occurred due to the inherent limitations of voice recognition software. Read the chart carefully and recognize, using context, where substitutions have occurred. [email or web address] Not available 09/07/2024 12:09:43 03/08/2025 [id number] Follow-up hypertension, GERD, hyperlipidemia and anxiety disorder all clinically stable. Check blood work in the form of CBC, CMP and lipid panel. Continue on current Rx also needs a bone density scan. Follow-up in six months Additional Orders - Directives - Recommendations 1. DEXA Scan Follow Up: 6 Months Approximate Date: 09/04/2025 Portions of record are template driven. When necessary additional context will be provided. Additionally some portions have been created with voice recognition software. Occasional wrong-word or s ound-a-like substitutions may have occurred due to the inherent limitations of voice recognition software. Read the chart carefully and recognize, using context, where substitutions may have occurred. Created: Malinda Wade M.D. 03.08.2025 11:23 AM [email or web address] Not available 03/08/2025 12:24:00 Reason for Referral None Reported. Results Created Date Observation Date Name Description Value Unit Range Abnormal Flag Note LastModifiedBy Organization Detail LastModifiedTime 03/15/20 24 03/16/2024 LIPID PANEL , STAND SEAN cholesterol, total 175 mg/dL <200 normal Not Available [employer] [facility] [facility] [address] [place], [address], 03/16/2024 11:03:19 03/15/20 24 03/16/2024 LIPID PANEL , STAND SEAN HDL cholesterol 64 mg/dL > or = 50 normal Not Available [facility] [facility] [address] [place], [address], 03/16/2024 11:03:19 03/15/2003/16/2024 LIPID PANEL , STAND SEAN triglyceride s 138 mg/dL <150 normal Not Available [employer] [address] [place], [address], 03/16/2024 11:03:19 03/15/20 24 03/16/2024 LIPID PANEL , STAND SEAN LDL-choleste rol 87 mg/dL _(lashonda c) normal Refer ence range : <100 Annamarie able range <100 mg/dL for prima ry preve ntion ; <70 mg/dL for patie nts with CHD or diabe tic patie nts with > or = 2 CHD risk facto rs. LDL-C is now calcu lated using the Montserrat n-Hop kins miyau satish n, which is a valid ated novel metho d provi ding angus r accur acy than the Fried rita equat ion in the estim ation of LDL-C . Montserrat richey SS et al. SASCHA. 2013; 310(1 9): 2061- 2068 (http ://ed ucati on.Qu estDi Appercode. com/f aq/FA Q164) Not Available [employer] [address] [address] [place], [address], 03/16/2024 11:03:19 03/15/20 24 03/16/2024 LIPID PANEL , STAND SEAN chol/HDLC ratio 2.7 (calc ) <5.0 normal Not Available [facility] [address] [address] [place], [address], 03/16/2024 11:03:19 03/15/20 24 03/16/2024 LIPID PANEL , STAND SEAN non HDL cholesterol 111 mg/dL _(lashonda c) <130 normal For patie nts with diabe angelic plus 1 major ASCVD risk facto r, treat ing to a non-H DL-C goal of <100 mg/dL (LDL- C of <70 mg/dL ) is consi jossyd a thera yuliet c optio n. Not Available [employer] [address] [address] [place], [address], 03/16/2024 11:03:19 03/15/20 24 03/16/2024 MAGNE SIUM magnesium 1.7 mg/dL 1.5-2. 5 normal Not Available [employer] [address] [address] [address], [place], [address], 03/16/2024 11:03:21 03/15/20 24 03/16/2024 COMPR EHENS TERRENCE METAB OLIC PANEL glucose 99 mg/dL 65-99 normal Fasti ng refer ence inter lynne Not Available [address], [address], 03/16/2024 11:03:22 03/15/20 24 03/16/2024 COMPR EHENS TERRENCE METAB OLIC PANEL urea nitrogen (BUN) 25 mg/dL 7-25 normal Not Available [address], [address], 03/16/2024 11:03:22 03/15/20 24 03/16/2024 COMPR EHENS TERRENCE METAB OLIC PANEL creatinine 0.89 mg/dL 0.50-1 .05 normal Not Available [address], [address], 03/16/2024 11:03:22 03/15/20 24 03/16/2024 COMPR EHENS TERRENCE METAB OLIC PANEL eGFR 71 mL/mi n/1.7 3m2 > or = 60 normal Not Available [address], [address], 03/16/2024 11:03:22 03/15/20 24 03/16/2024 COMPR EHENS TERRENCE METAB OLIC PANEL BUN/creatini ne ratio SEE NOTE: (calc ) 6-22 Not Repor femi: BUN and Creat inine are withi n refer ence range . Not Available [address], [address], 03/16/2024 11:03:22 03/15/20 24 03/16/2024 COMPR EHENS TERRENCE METAB OLIC PANEL sodium 139 mmol/ L 135-14 6 normal Not Available [address], [address], 03/16/2024 11:03:22 03/15/20 24 03/16/2024 COMPR EHENS TERRENCE METAB OLIC PANEL potassium 3.7 mmol/ L 3.5-5. 3 normal Not Available [address] [place], [address], 03/16/2024 11:03:22 03/15/20 24 03/16/2024 COMPR EHENS TERRENCE METAB OLIC PANEL chloride 102 mmol/ L 98-110 normal Not Available [address], [address], 03/16/2024 11:03:22 03/15/20 24 03/16/2024 COMPR EHENS TERRENCE METAB OLIC PANEL carbon dioxide 29 mmol/ L 20-32 normal Not Available [facility] [address], [address], 03/16/2024 11:03:22 03/15/20 24 03/16/2024 COMPR EHENS TERRENCE METAB OLIC PANEL calcium 9.4 mg/dL 8.6-10 .4 normal Not Available [address], [address], 03/16/2024 11:03:22 03/15/20 24 03/16/2024 COMPR EHENS TERRENCE METAB OLIC PANEL protein, total 6.5 g/dL 6.1-8. 1 normal Not Available [address], [address], 03/16/2024 11:03:22 03/15/20 24 03/16/2024 COMPR EHENS TERRENCE METAB OLIC PANEL albumin 4.1 g/dL 3.6-5. 1 normal Not Available [address], [address], 03/16/2024 11:03:22 03/15/20 24 03/16/2024 COMPR EHENS TERRENCE METAB OLIC PANEL globulin 2.4 g/dL_ (calc ) 1.9-3. 7 normal Not Available [facility] [address], [address], 03/16/2024 11:03:22 03/15/20 24 03/16/2024 COMPR EHENS TERRENCE METAB OLIC PANEL albumin/glob ulin ratio 1.7 (calc ) 1.0-2. 5 normal Not Available [address], [address], 03/16/2024 11:03:22 03/15/20 24 03/16/2024 COMPR EHENS TERRENCE METAB OLIC PANEL bilirubin, total 0.3 mg/dL 0.2-1. 2 normal Not Available [address], [address], 03/16/2024 11:03:22 03/15/20 24 03/16/2024 COMPR EHENS TERRENCE METAB OLIC PANEL alkaline phosphatase 70 U/L 37-153 normal Not Available [address], [address], 03/16/2024 11:03:22 03/15/20 24 03/16/2024 COMPR EHENS TERRENCE METAB OLIC PANEL AST 13 U/L 10-35 normal Not Available [address], [address], 03/16/2024 11:03:22 03/15/20 24 03/16/2024 COMPR EHENS TERRENCE METAB OLIC PANEL ALT 5 U/L 6-29 low Not Available [address], [address], 03/16/2024 11:03:22 03/15/20 24 03/16/2024 CBC (INCL UDES DIFF/ PLT) white blood cell count 7.7 thous and/u L 3.8-10 .8 normal Not Available [address], [address], 03/16/2024 11:03:23 03/15/20 24 03/16/2024 CBC (INCL UDES DIFF/ PLT) red blood cell count 3.98 dimitry on/uL 3.80-5 .10 normal Not Available [address], [address], 03/16/2024 11:03:23 03/15/20 24 03/16/2024 CBC (INCL UDES DIFF/ PLT) hemoglobin 13.1 g/dL 11.7-1 5.5 normal Not Available [address], [address], 03/16/2024 11:03:23 03/15/20 24 03/16/2024 CBC (INCL UDES DIFF/ PLT) hematocrit 38.5 % 35.0-4 5.0 normal Not Available [address], [address], 03/16/2024 11:03:23 03/15/20 24 03/16/2024 CBC (INCL UDES DIFF/ PLT) MCV 96.7 fL 80.0-1 00.0 normal Not Available [address], [address], 03/16/2024 11:03:23 03/15/20 24 03/16/2024 CBC (INCL UDES DIFF/ PLT) MCH 32.9 pg 27.0-3 3.0 normal Not Available [address], [address], 03/16/2024 11:03:23 03/15/20 24 03/16/2024 CBC (INCL UDES DIFF/ PLT) MCHC 34.0 g/dL 32.0-3 6.0 normal Not Available [address], [address], 03/16/2024 11:03:23 03/15/20 24 03/16/2024 CBC (INCL UDES DIFF/ PLT) RDW 13.1 % 11.0-1 5.0 normal Not Available [address], [address], 03/16/2024 11:03:23 03/15/20 24 03/16/2024 CBC (INCL UDES DIFF/ PLT) platelet count 468 thous and/u L 140-40 0 high Not Available [address], [address], 03/16/2024 11:03:23 03/15/20 24 03/16/2024 CBC (INCL UDES DIFF/ PLT) MPV 9.7 fL 7.5-12 .5 normal Not Available [address], [address], 03/16/2024 11:03:23 03/15/20 24 03/16/2024 CBC (INCL UDES DIFF/ PLT) absolute neutrophils 4397 cells /uL 1500-7 800 normal Not Available [address], [address], 03/16/2024 11:03:23 03/15/20 24 03/16/2024 CBC (INCL UDES DIFF/ PLT) absolute lymphocytes 2141 cells /uL 850-39 00 normal Not Available [address], [address], 03/16/2024 11:03:23 03/15/20 24 03/16/2024 CBC (INCL UDES DIFF/ PLT) absolute monocytes 593 cells /uL 200-95 0 normal Not Available [address], [address], 03/16/2024 11:03:23 03/15/20 24 03/16/2024 CBC (INCL UDES DIFF/ PLT) absolute eosinophils 508 cells /uL 15-500 high Not Available [address], [address], 03/16/2024 11:03:23 03/15/20 24 03/16/2024 CBC (INCL UDES DIFF/ PLT) absolute basophils 62 cells /uL 0-200 normal Not Available [facility] [address], [address], 03/16/2024 11:03:23 03/15/20 24 03/16/2024 CBC (INCL UDES DIFF/ PLT) neutrophils 57.1 % normal Not Available [address], [address], 03/16/2024 11:03:23 03/15/20 24 03/16/2024 CBC (INCL UDES DIFF/ PLT) lymphocytes 27.8 % normal Not Available [facility] [address], [address], 03/16/2024 11:03:23 03/15/20 24 03/16/2024 CBC (INCL UDES DIFF/ PLT) monocytes 7.7 % normal Not Available [address], [address], 03/16/2024 11:03:23 03/15/20 24 03/16/2024 CBC (INCL UDES DIFF/ PLT) eosinophils 6.6 % normal Not Available [facility] [address], [address], 03/16/2024 11:03:23 03/15/20 24 03/16/2024 CBC (INCL UDES DIFF/ PLT) basophils 0.8 % normal Not Available [address], [address], 03/16/2024 11:03:23 03/15/20 24 03/16/2024 T4 (THYR OXINE ), TOTAL T4 (thyroxine), total 8.9 mcg/d L 5.1-11 .9 normal Not Available [address], [address], 03/16/2024 11:03:24 03/15/20 24 03/16/2024 TSH TSH 2.95 mIU/L 0.40-4 .50 normal Not Available [address], [place], [address], 03/16/2024 11:03:25 03/15/20 24 03/16/2024 VITAM IN B12 vitamin B12 502 pg/mL 200-11 00 normal Not Available [facility] [address] [address] [place], [address], 03/16/2024 11:03:26 03/15/20 24 03/16/2024 VITAM IN D,25- OH,TO CAN,I A vitamin D,25-oh,tota l,ia 60 NG/mL 30-100 normal Vitam in D Statu s 25-OH Vitam in D: Defic iency : <20 ng/mL Insuf ficie ncy: 20 - 29 ng/mL Optim al: > or = 30 ng/mL For 25-OH Vitam in D testi ng on patie nts on D2-brumfield pplem entat ion and patie nts for whom quant itati on of D2 and D3 fract ions is requi red, the [facility] e[facility](TM ) 25-OH VIT D, (D2,D 3), LC/MS /MS is recom allan d: order code 95146 (debora ents >2yrs ). See Note 1 Note 1 For addit ional sanar jocelyn chow refer to http: //haresh Monrealia gnost ics.c om/fa q/FAQ 199 (This link is being provi ded for infor jane valladares/ virgie yates purpo ses only. ) Not Available [facility] [address] [address] [place], [address], 03/16/2024 11:03:27 09/15/20 24 09/16/2024 LIPID PANEL , STAND SEAN cholesterol, total 193 mg/dL <200 normal Not Available [facility] [address] [address] [place], [address], 09/16/2024 05:59:00 09/15/20 24 09/16/2024 LIPID PANEL , STAND SEAN HDL cholesterol 76 mg/dL > or = 50 normal Not Available [facility] [address] [address], [place], [address], 09/16/2024 05:59:00 09/15/2009/16/2024 LIPID PANEL , STAND SEAN triglyceride s 115 mg/dL <150 normal Not Available [facility] [address] [address] [address] [place], [address], 09/16/2024 05:59:00 09/15/2009/16/2024 LIPID PANEL , STAND SEAN LDL-choleste rol 96 mg/dL _(lashonda c) normal Refer ence range : <100 Annamarie able range <100 mg/dL for prima ry preve ntion ; <70 mg/dL for patie nts with CHD or diabe tic patie nts with > or = 2 CHD risk facto rs. LDL-C is now calcu lated using the Montserrat n-Hop kins miyau satish n, which is a valid ated novel henry greco r accur acy than the Fried rita equat ion in the estim ation of LDL-C . Montserrat richey SS et al. SASCHA. 2013; 310(1 9): 2061- 2068 (http ://ed ucati on.[employer] Josh Appercode. Ocsc/f aq/FA Q164) Not Available [facility] [address] [address] [address] [address], [place], [address], 09/16/2024 05:59:00 09/15/2009/16/2024 LIPID PANEL , STAND SEAN chol/HDLC ratio 2.5 (calc ) <5.0 normal Not Available [facility] [address] [place], [address], 09/16/2024 05:59:00 09/15/2009/16/2024 LIPID PANEL , STAND SEAN non HDL cholesterol 117 mg/dL _(lashonda c) <130 normal For patie nts with diabe angelic plus 1 major ASCVD risk facto r, treat ing to a non-H DL-C goal of <100 mg/dL (LDL- C of <70 mg/dL ) is татьянаi guadalupe mayorga optio n. Not Available [address] [place] [address] [place], [address], 09/16/2024 05:59:00 09/15/20 24 09/16/2024 COMPR EHENS TERRENCE METAB OLIC PANEL glucose 82 mg/dL 65-99 normal Fasti ng refer ence inter lynne Not Available [address], [address], 09/16/2024 05:59:01 09/15/20 24 09/16/2024 COMPR EHENS TERRENCE METAB OLIC PANEL urea nitrogen (BUN) 25 mg/dL 7-25 normal Not Available [address], [address], 09/16/2024 05:59:01 09/15/20 24 09/16/2024 COMPR EHENS TERRENCE METAB OLIC PANEL creatinine 0.84 mg/dL 0.50-1 .05 normal Not Available [address], [address], 09/16/2024 05:59:01 09/15/20 24 09/16/2024 COMPR EHENS TERRENCE METAB OLIC PANEL eGFR 76 mL/mi n/1.7 3m2 > or = 60 normal Not Available [address], [address], 09/16/2024 05:59:01 09/15/20 24 09/16/2024 COMPR EHENS TERRENCE METAB OLIC PANEL BUN/creatini ne ratio SEE NOTE: (calc ) 6-22 Not Repor femi: BUN and Creat inine are withi n refer ence range . Not Available [address], [address], 09/16/2024 05:59:01 09/15/20 24 09/16/2024 COMPR EHENS TERRENCE METAB OLIC PANEL sodium 141 mmol/ L 135-14 6 normal Not Available [address], [address], 09/16/2024 05:59:01 09/15/2009/16/2024 COMPR EHENS TERRENCE METAB OLIC PANEL potassium 3.4 mmol/ L 3.5-5. 3 low Not Available [address], [address], 09/16/2024 05:59:01 09/15/2009/16/2024 COMPR EHENS TERRENCE METAB OLIC PANEL chloride 101 mmol/ L 98-110 normal Not Available [address], [address], 09/16/2024 05:59:01 09/15/2009/16/2024 COMPR EHENS TERRENCE METAB OLIC PANEL carbon dioxide 30 mmol/ L 20-32 normal Not Available [address], [address], 09/16/2024 05:59:01 09/15/2009/16/2024 COMPR EHENS TERRENCE METAB OLIC PANEL calcium 9.4 mg/dL 8.6-10 .4 normal Not Available [address], [address], 09/16/2024 05:59:01 09/15/2009/16/2024 COMPR EHENS TERRENCE METAB OLIC PANEL protein, total 6.2 g/dL 6.1-8. 1 normal Not Available [address], [address], 09/16/2024 05:59:01 09/15/2009/16/2024 COMPR EHENS TERRENCE METAB OLIC PANEL albumin 3.9 g/dL 3.6-5. 1 normal Not Available [address], [address], 09/16/2024 05:59:01 09/15/20 24 09/16/2024 COMPR EHENS TERRENCE METAB OLIC PANEL globulin 2.3 g/dL_ (calc ) 1.9-3. 7 normal Not Available [address], [address], 09/16/2024 05:59:01 09/15/20 24 09/16/2024 COMPR EHENS TERRENCE METAB OLIC PANEL albumin/glob ulin ratio 1.7 (calc ) 1.0-2. 5 normal Not Available [address], [address], 09/16/2024 05:59:01 09/15/2009/16/2024 COMPR EHENS TERRENCE METAB OLIC PANEL bilirubin, total 0.3 mg/dL 0.2-1. 2 normal Not Available [address], [address], 09/16/2024 05:59:01 09/15/20 24 09/16/2024 COMPR EHENS TERRENCE METAB OLIC PANEL alkaline phosphatase 57 U/L 37-153 normal Not Available [address], [address], 09/16/2024 05:59:01 09/15/20 24 09/16/2024 COMPR EHENS TERRENCE METAB OLIC PANEL AST 11 U/L 10-35 normal Not Available [address], [address], 09/16/2024 05:59:01 09/15/20 24 09/16/2024 COMPR EHENS TERRENCE METAB OLIC PANEL ALT 4 U/L 6-29 low Not Available [address], [address], 09/16/2024 05:59:01 03/21/20 25 03/22/2025 LIPID PANEL , STAND SEAN cholesterol, total 193 mg/dL <200 normal Not Available [facility] [address] [address] [place], [address], 03/22/2025 06:39:00 03/21/2003/22/2025 LIPID PANEL , STAND SEAN HDL cholesterol 66 mg/dL > or = 50 normal Not Available [facility] [address] [place], [address], 03/22/2025 06:39:00 03/21/2003/22/2025 LIPID PANEL , STAND SEAN triglyceride s 207 mg/dL <150 high If a non-f astin g speci men was colle cted, consi peter repea t trigl yceri de testi ng on a fasti ng speci men if clini anabella indic ated. George espitia et al. J. of Clin. Lipid ol. 2015; 9:129 -169. Not Available [address] [place], [address], 03/22/2025 06:39:00 03/21/2003/22/2025 LIPID PANEL , STAND SEAN LDL-choleste rol 97 mg/dL _(lashonda c) normal Refer ence range : <100 Annamarie able range <100 mg/dL for prima ry preve ntion ; <70 mg/dL for patie nts with CHD or diabe tic patie nts with > or = 2 CHD risk facto rs. LDL-C is now calcu lated using the Montserrat n-Hop kins miyau satish n, which is a valid ated novel alvao d deborah greco r accur acy than the Fried rita equat ion in the estim ation of LDL-C . Montserrat richey SS et al. SASCHA. 2013; 310(1 9): 2061- 2068 (http ://ed ucati on.Qu Josh camarena tics. com/f aq/FA Q164) Not Available [facility] [address] [address], [place], [address], 03/22/2025 06:39:00 03/21/2003/22/2025 LIPID PANEL , STAND SEAN chol/HDLC ratio 2.9 (calc ) <5.0 normal Not Available [address], [address], 03/22/2025 06:39:00 03/21/20 25 03/22/2025 LIPID PANEL , STAND SEAN non HDL cholesterol 127 mg/dL _(lashonda c) <130 normal For patie nts with diabe angelic plus 1 major ASCVD risk facto r, treat ing to a non-H DL-C goal of <100 mg/dL (LDL- C of <70 mg/dL ) is consi dered a thera peuti c optio n. Not Available [address], [address], 03/22/2025 06:39:00 03/21/20 25 03/22/2025 COMPR EHENS TERRENCE METAB OLIC PANEL glucose 92 mg/dL 65-99 normal Fasti ng refer ence inter lynne Not Available [address], [address], 03/22/2025 06:39:02 03/21/20 25 03/22/2025 COMPR EHENS TERRENCE METAB OLIC PANEL urea nitrogen (BUN) 22 mg/dL 7-25 normal Not Available [address], [address], 03/22/2025 06:39:02 03/21/20 25 03/22/2025 COMPR EHENS TERRENCE METAB OLIC PANEL creatinine 0.81 mg/dL 0.50-1 .05 normal Not Available [address], [address], 03/22/2025 06:39:02 03/21/20 25 03/22/2025 COMPR EHENS TERRENCE METAB OLIC PANEL eGFR 79 mL/mi n/1.7 3m2 > or = 60 normal Not Available [address], [address], 03/22/2025 06:39:02 03/21/20 25 03/22/2025 COMPR EHENS TERRENCE METAB OLIC PANEL BUN/creatini ne ratio SEE NOTE: (calc ) 6-22 Not Repor femi: BUN and Creat inine are withi n refer ence range . Not Available [address], [address], 03/22/2025 06:39:02 03/21/20 25 03/22/2025 COMPR EHENS TERRENCE METAB OLIC PANEL sodium 140 mmol/ L 135-14 6 normal Not Available [address], [address], 03/22/2025 06:39:02 03/21/20 25 03/22/2025 COMPR EHENS TERRENCE METAB OLIC PANEL potassium 3.6 mmol/ L 3.5-5. 3 normal Not Available [address], [address], 03/22/2025 06:39:02 03/21/20 25 03/22/2025 COMPR EHENS TERERNCE METAB OLIC PANEL chloride 101 mmol/ L 98-110 normal Not Available [address], [address], 03/22/2025 06:39:02 03/21/20 25 03/22/2025 COMPR EHENS TERRENCE METAB OLIC PANEL carbon dioxide 29 mmol/ L 20-32 normal Not Available [address], [address], 03/22/2025 06:39:02 03/21/20 25 03/22/2025 COMPR EHENS TERRENCE METAB OLIC PANEL calcium 9.4 mg/dL 8.6-10 .4 normal Not Available [address], [address], 03/22/2025 06:39:02 03/21/20 25 03/22/2025 COMPR EHENS TERRENCE METAB OLIC PANEL protein, total 6.7 g/dL 6.1-8. 1 normal Not Available [address], [address], 03/22/2025 06:39:02 03/21/20 25 03/22/2025 COMPR EHENS TERRENCE METAB OLIC PANEL albumin 4.1 g/dL 3.6-5. 1 normal Not Available [address], [address], 03/22/2025 06:39:02 03/21/20 25 03/22/2025 COMPR EHENS TERRENCE METAB OLIC PANEL globulin 2.6 g/dL_ (calc ) 1.9-3. 7 normal Not Available [address], [address], 03/22/2025 06:39:02 03/21/20 25 03/22/2025 COMPR EHENS TERRENCE METAB OLIC PANEL albumin/glob ulin ratio 1.6 [id number]|2025-04-18 09:23:00|2025-04-18 09:22:00|XMS_ITS|JIMMY CARDENAS|External Medical Summaries|[id number]|" Clinical Summary Created on: April 18, 2025 Javier Brown : 1955 Sex: Female Author Organization [facility] Address [address] [place] [address] Care Team Providers Care Nurse Liaison Name Role Phone Dionicio Romero MD Unavailable Malinda Wade MD Primary Care Provider [phone] Source Comments [facility],non-owned Affiliates and Associated Physician Practices [facility] consisting of ambulatory clinics and hospital sitesin [place], [place], [place] and [place]. This disclosure is being madepursuant to the Care Everywhere program and may not contain all information available regarding this patient. Last updated 18.[facility] Allergies Active Allergy Reactions Criticality Noted Date Comments Duloxetine Shortness of Breath High 07/04/2017 Hydroxychloroquine Urticaria Medium 07/04/2017 Procaine Nausea and/or Vomiting 04/28/2008 Propoxyphene Nausea and/or Vomiting 04/28/2008 Medications * Be aware that medications may not be up to date on this document. Alwaysverify current medications with the patient. ALPRAZolam (XANAX) 1 MG tablet Take 1 mg by mouth 4 times daily as needed for Anxiety 1 06/12/2017 Active LYRICA 100 MG capsule Take 100 mg by mouth 2 times daily 1 06/13/2017 Active traMADol (ULTRAM) 50 MG tablet Take 50 mg by mouth every 6 hours as needed for Pain 1 06/23/2017 Active valACYclovir (VALTREX) 1 GM tablet Take 1,000 mg by mouth once daily Active estradiol (ESTRACE) 1 MG tablet Take 1 mg by mouth once daily Active EVENING PRIMROSE OIL PO Take 2,600 mg by mouth once daily Active Active Problems Problem Noted Date Diagnosed Date Polyarthralgia 12/24/2017 Abnormal ANCA test 12/24/2017 Elevated antinuclear antibody (JOSI) level 2017 H/O irritable bowel syndrome 12/24/2017 Malaise and fatigue 12/24/2017 Myofascial pain syndrome 12/24/2017 Osteoarthritis of multiple joints 12/24/2017 Social History Tobacco Use Types Packs/Day Years Used Date Smoking Tobacco: Never Smokeless Tobacco: Never Tobacco Cessation:Counseling Given: No Alcohol Use Standard Drinks/Week Comments No 0 (1 standard drink = 0.6 oz pur e alcohol) Comments No Sex and Gender Information Value Date Recorded Sex Assigned at Not on file Legal Sex Female 11:36 AM CDT Gender Identity Not on file Sexual Orientation Not on file Occupation Industry Job Start Date Job End Date Unemployed Not on file Not on file Not on file Last Filed Vital Signs Vital Sign Reading Time Taken Comments Blood Pressure 139/90 04/08/2018 11:14 AM CDT Pulse 84 09/01/2017 9:26 AM CDT Temperature - - Respiratory Rate - - Oxygen Saturation - - Inhaled Oxygen Concentration - - Weight 54.9 kg (121 lb) 04/08/2018 11:14 AM CDT Height 152.4 cm (5') 12/24/2017 12:42 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 Body Mass Index 23.63 12/24/2017 12:42 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 Plan of Treatment Health Maintenance Due Date Last Done Comments BONE DENSITY TESTING 1955 COLOGUARD (AGES 45-75) - COL ON CA SCREENING 1955 COLON MONITORING 1955 COLONOSCOPY - COLON CA SCREENING 1955 CT COLONOGRAPHY - COLON CA SCREENING 1955 Colorectal Cancer Screening 1955 FIT - COLON CA SCREENING 1955 FLEX SIG - COLON CA SCREENING 1955 LIPID TESTING 1955 MAMMOGRAM 1955 DTAP/TDAP/TD VACCINES (1 - Tdap) 1975 PNEUMOCOCCAL VACCINE 50+ (1 of 1 - PCV) 2006 ZOSTER VACCINE (1 of 2) 2006 Respiratory Syncytial Virus (RSV) Vaccine Pt: or over 60 yrs (1 - Risk 60-74 years 1-dose series) 2016 COVID-19 VACCINE (1 - 2023-2 5 season) 2024 DEPRESSION SCREENING 12/01/2024 MEDICARE AWV CALENDAR YEAR 2024 INFLUENZA VACCINE (Season Ended) 2025 09/24/20 13 HEPATITIS C SCREENING Completed 07/04/2017 HEPATITIS B VACCINE Aged Out No longe r eligible based on patient's age to complete this topic HIB VACCINE Aged Out No longer eligi ble based on patient's age to complete this topic HPV VACCINE Aged Out No longer eligi ble based on patient's age to complete this topic MENINGOCOCCAL (Group B) VACC INE SHARED DECISION-MAKING Aged Out No longer eligibl e based on patient's age to complete this topic MENINGOCOCCAL GROUPS A/C/Y/W VACCINE Aged Out No longer eligible b ased on patient's age to complete this topic Procedures Procedure Name Priority Date/Time Associated Diagnosis Comments HEPATITIS C ANTIBODY Routine 07/04/2017 11:43 AM CDT Polyarthralgia Hematuria History of connective tissue disease Elevated antinuclear antibody (JOSI) level Myofascial pain Malaise and fatigue Degenerative disc disease, lumbar from Last 3 Months or Most Recently Relevant to Health Maintenance Results * HEPATITIS C ANTIBODY (07/04/2017 11:43 AM CDT) Hepatitis C Antibody Non Reactive Non Reactive [facility] ACCOUNT BILL Comment: Non Reactive - Antibodies to Hepatitis C virus (HCV) were no t detected, result does not exclude early acute HCV infection. Blood BLOOD SPECIMEN / Unknown 07/04/2017 11:43 AM CDT 07/04/2017 Narrative Resulting Agency Comment [facility] [address] [phone] Dionicio Romero MD LAB - CHEMISTRY ORDERABLES Final Result [facility] ACCOUNT BILL [address] [place] [address] from Last 3 Months or Most Recently Relevant to Health Maintenance Insurance [facility] UHC MANAGED MEDICARE ADV UHC MANAGED MEDICARE ADV [facility] * Guarantor: KD BROWN Account Type Relation to Patient Date of Phone Billing Address Personal/Family 1955 [address] Care Teams Nurse Liaison Relationship Specialty Start Date End Date Malinda Wade MD [address] [place] [address] [address] [place] [phone] PCP - General Internal Medicine 07/04/17 [place] [address] [phone] Ergonomist Rheumatology 07/04/17 "
--- OUTSIDE RECORDS SUMMARY | 2025-04-18 09:22 | XMS_ITS | Encounter Summary ---
Author Organization [facility] Address [address] [place] [address] Care Team Providers Care Laboratory Technical Specialist Name Role Phone Dionicio Romero MD Unavailable Luis Carlos Wade MD Primary Care Provider [phone] Encounter Details Date Type Department Care Team (Late st Contact Info) Description 06/15/2020 Lab Requisition [facility] D[facility] Lab [address] [place] [phone] Mayank Worthington MD [address] [place] [address] Social History Tobacco Use Types Packs/Day Years [...] file Not on file Not on file documented as of this encounter Plan of Treatment Not on file documented as of this encounter Procedures Procedure Name Priority Date/Time Associated Diagnosis Comments DERMATOPATHOLOGY Routine 06/13/2020 12:0 0 AM CDT documented in this encounter Results * DERMATOPATHOLOGY (06/13/2020 12:00 AM CDT) Case Report Dermatopathology Report Case: [id number] Authorizing Provider: Mayank Worthingotn MD Collected: 06/13/2020 12:00 AM Ordering Location: [facility] Derm[facility] Lab Received: 06/15/2020 07:29 AM Pathologist: Josselyn Colbert MD Specimen: Skin, left upper back 0 4:52 PM CDT DERMATOPATHOLOGY LABORATORY Final Diagnosis Specimen A. SKIN, left upper back: INTRADERMAL MELANOCYTIC NEVUS (D22.5) 0 4:52 PM CDT DERMATOPATHOLOGY LABORATORY at 1652 CDT Clinical History Irritated nevus vs other. Path# [id number] 0 4:52 PM CDT DERMATOPATHOLOGY LABORATORY Gross Description Specimen A: Received is one formalin filled container labeled with the patient's name and designated left upper back. The specimen consists of a shave biopsy measuring 6x5x1 mm. Jar 0. 0 4:52 PM CDT DERMATOPATHOLOGY LABORATORY Microscopic Description Specimen A. SKIN, left upper back: There are nests of cytologically bland melanocytes within the dermis that mature with depth. 0 4:52 PM CDT DERMATOPATHOLOGY LABORATORY Disclaimer An external and internal positive and negative controls are appropriate for the histochemical, immunohistochemical and immunofluorescence stain(s) in this case (if any), except where stated explicitly. The performance characteristics of the stain(s) cited in this report were developed and its performance characteristic determined by the Dermatopathology Laboratory at [facility], directed by Dr. Bernadette Colbert. These tests need not be, and therefore are not, approved by the [place] Food and Drug Administration. The tests are used for clinical purposes. Billing Codes Specimen Charges Stain Charges 61258 1 0 4:52 PM CDT DERMATOPATHOLOGY LABORATORY Embedded Images 0 4:52 PM CDT DERMATOPATHOLOGY LABORATORY Pathology/Cytolog y TISSUE SPECIMEN FROM SKIN / Unknown 06/13/2020 06/15/2020 7:29 AM CDT us Mayank Worthington MD LAB - PATHOLOGY/CYTOLOGY ORDER EVIE Final Result DERMATOPATHOLOGY LABORATORY [facility] - Department of Dermatology [facility] [address] [place] [address], [facility] [phone] documented in this encounter Visit Diagnoses Not on filedocumented in this encounter Care Teams Laboratory Technical Specialist Relationship Specialty Start Date End Date Luis Carlos Wade MD [address] [place] [address] PCP - General Internal Medicine 07/04/17 [place] [address] [facility] [address] [place] [address] Latin American Studies Professor Rheumatology 07/04/17 documented as of this encounter
--- OUTSIDE RECORDS SUMMARY | 2025-04-18 09:22 | XMS_ITS | Encounter Summary ---
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
--- OUTSIDE RECORDS SUMMARY | 2025-04-18 09:22 | XMS_ITS | Referral Summary ---
Author Organization [facility] Address [address] [place] [address] Care Team Providers Care Room Inspector Name Role Phone Luis Carlos Wade MD [...] pain 2021 History of kidney stones 2021 Social History Tobacco Use Types Packs/Day Years [...] on file Legal Sex Female 3:54 PM OSTEOPATHIC NEUROLOGIST Gender Identity Not on file Sexual Orientation Not on file Last Filed Vital Signs Vital Sign Reading Time Taken Comments Blood Pressure 133/82 11/26/2022 5:10 PM OSTEOPATHIC NEUROLOGIST Pulse 97 11/26/2022 11:02 AM OSTEOPATHIC NEUROLOGIST Temperature 36.7 C (98 F) 11/26/2022 11:02 AM OSTEOPATHIC NEUROLOGIST Respiratory Rate 18 11/26/2022 11:02 AM OSTEOPATHIC NEUROLOGIST Oxygen Saturation 100% 11/26/2022 11:02 AM OSTEOPATHIC NEUROLOGIST Inhaled Oxygen Concentration - - Weight 54.4 kg (120 lb) 11/26/2022 11:00 AM OSTEOPATHIC NEUROLOGIST Height 152.4 cm (5') 11/26/2022 11:00 AM OSTEOPATHIC NEUROLOGIST Body Mass Index 23.44 11/26/2022 11:00 AM OSTEOPATHIC NEUROLOGIST Plan of Treatment Not on file Insurance [id number] UHC MEDICARE ADVANTAGE Member Subscriber Plan / Payer (Ef fective 2021-Present) Name:Rosalind Brown Relation to Subscriber:Self Name:Rosalind Brown Payer ID:[id number] (NAIC) Type:[facility] MED[facility] Address: [place] [phone] [facility] MEDICARE ADVANTAGE Member Subscriber Plan / Payer (Ef fective 2022-Present) Name:Rosalind Brown Christen Relation to Subscriber:Self Name:Rosalind Brown Christen Payer ID:[id number] (NAIC) Type:[facility] MEDICARE Address: [place] [phone] Care Teams Room Inspector Relationship Specialty Start Date End Date Luis Carlos Wade MD PCP - General 04/04/17
== END 2025-04-18 09:01 | disposition home or self-care (01) ==
LOC: ANHIMG 09:03
PROVIDERS: PCP Internal Medicine; Visit Provider Internal Medicine
DX: M81.0 Age-related osteoporosis without current pathological fracture (principal); M85.852 Other specified disorders of bone density and structure, left thigh; M85.851 Other specified disorders of bone density and structure, right thigh
CPT/HCPCS: 77080